=== PATIENT | male | born 1980 | race African-American/Black ===

== ENCOUNTER 2023-12-01 10:00 | Outpatient (AMB) | payer OTHER, SELFPAY ==
--- NOTE | 2023-12-01 10:10 | MHC.PC.OV ---
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 Intake Note: pt is here for est care and requesting a PE Rack Washer Required: No Accompanied by: Self / Same As Patient Allergies No Known Allergies Allergy (Verified 12/01/23 10:20) Medication List - Last Reconciled 12/01/23 by RAEANN Ruggiero ibuprofen 400 mg PO Q8H PRN Tobacco use date assessed: 12/01/23 Dental Screening Dental Screen Date: 12/01/23 Did you have a dental visit in the last 12 months?: Yes Did you have a dental problem in the last 6 months where you did not have access to dental care?: No Was dental information given to patient?: Patient has dentist HPI HPI Comments History of Present Illness Details Patient is a 43-year-old male who I am meeting for the 1st time. Patient is here for physical exam. Patient is up-to-date with his immunizations Will draw labs today including CBC, CMP, TSH, vitamin-D, vitamin B6, vitamin B12, PSA, lipid panel. Patient has a past medical history significant for intermittent lower back pain and snoring. Patient given Healthcare proxy form, will return to office. [facility] Surgical History History of root canal procedure Family History Mother No known problems Father High blood pressure Diabetes Social History Housing: House Alcohol intake: current Alcohol intake frequency: holidays/special occasions only Alcohol type: beer Patient Tobacco Use Status: Never used Tobacco e-Cigarette/Vaping Use: Never Used service: Yes (active duty, [employer] ) Current occupational status: employed Current occupational exposures/hazards: No Cognitive needs: No Hearing needs: No Vision needs: No Questionnaire PHQ-9 Over the last 2 weeks, how often have you been bothered by any of the following problems? 1. Little interest or pleasure in doing things: not at all 2. Feeling down, depressed, or hopeless: not at all 3. Trouble falling or staying asleep, or sleeping too much: not at all 4. Feeling tired or having little energy: not at all 5. Poor appetite or overeating: not at all 6. Feeling bad about yourself - or that you are a failure or have let yourself or your family down: not at all 7. Trouble concentrating on things, such as reading the newspaper or watching television: not at all 8. Moving or speaking so slowly that other people could have noticed. Or the opposite - being so fidgety or restless that you have been moving around a lot more than usual: not at all 9. Thoughts that you would be better off or of hurting yourself in some way: not at all Total score: 0 Depression Screening Interpretation: Negative Depression Screening Done: Yes 69580 - PHQ-9 Billing: Yes Source: Developed by Drs. Marvin Clark, Alta Ruth, Matt Agustin and colleagues, with an educational yenni from [employer]. Thrive Questionnaire Date Thrive assessed: 12/01/23 I am a: Patient What is your living situation today?: I have a steady place to live Within the past 12 months, did the food you bought not last and you didn't have the money to get more?: Never true Within the past 12 months, did you worry whether your food would run out before you got money to buy more?: Never true Do you have trouble paying for medicines?: No Do you have trouble getting transportation to medical appointments?: No Do you have trouble paying your heating and electricity bill?: No Do you have trouble taking care of your child, family member or friend?: No Do you have trouble with day-to-day activities such as bathing, preparing meals, shopping, managing finances, etc.?: No Are you currently unemployed and looking for a job?: No Are you interested in more education?: No Please select the resources that you would like help with: None Currently or been in a relationship where the following occur: no concerns reported THRIVE Score: 0 AUDIT C Alcohol Use Questionnaire (AUDIT-C) 1. How often do you have a drink containing alcohol?: Monthly or less 3. How often do you have six or more drinks on one occasion?: Never Total Score: 1 Score Reviewed/Action Taken: Yes THAO-7 AMB Questionnaire THAO-7 Date THAO - 7 assessed: 12/01/23 Feeling nervous, anxious, or on edge: 0 = Not at all Not being able to stop or control worryin = Not at all Worrying too much about different things: 0 = Not at all Trouble relaxin = Not at all Being so restless that it is hard to sit still: 0 = Not at all Becoming easily annoyed or irritable: 0 = Not at all Feeling afraid as if something awful might happen: 0 = Not at all Total THAO-7 score (0-4 normal; 5-9 mild; 10-14 moderate; 15-21 severe): 0 Source: Developed by Drs. Marvin Clark, Alta Ruth, Matt Agustin and colleagues, with an educational yenni from [employer] [facility]. THAO-7 Assessment Billing THAO-7 Assessment Tool: THAO-7 Assessment 58064 Review of Systems Const All systems reviewed & are unremarkable except as noted in HPI and below Card Denies chest pain and Denies dyspnea Resp Denies dyspnea GI Denies diarrhea, Denies nausea and Denies vomiting Musc Reports back pain (lower), Reports radiating pain into limb (right limb) and Denies tingling Neuro Denies tingling and Denies paresthesias Psych Denies homicidal ideation and Denies suicidal ideation Physical exam (Primary Care) Vital Signs: Last Vital Signs Pulse 67 12/01/23 10:12 BP 120/70 12/01/23 10:12 Pulse Ox 97 12/01/23 10:12 Oxygen Delivery Method Room Air 12/01/23 10:12 Care Plan Goal for BP management: Patient's blood pressure is in control. BMI result Body Mass Index 28.9 Tobacco/Smoking Status: Tobacco use Status Tobacco use date assessed 12/01/23 12/01/23 10:17 Patient Tobacco Use Status Never used Tobacco 12/01/23 10:17 e-Cigarette/Vaping Use Never Used 12/01/23 10:17 Depression Screening Interpretation: Negative Currently or been in a relationship where the following occur: no concerns reported Advance Care Planning discussion: Exists, not on file Date of discussion: 12/01/23 Forms completed: Health Care Proxy Time spent: 1-15 minutes, not on file Const Other: Appearance: Alert.? Oriented X3.? No acute distress.? Head: Normocephalic, atraumatic, Eyes: Pupils equal, round and reactive to light.? ENT: Pharynx normal.?TM intact and pearly bowen. Neck: Normal inspection.? Neck supple.?Full ROM. CVS: Normal heart rate and rhythm.? Pulses normal.? Respiratory: No respiratory distress.? Breath sounds normal.? Abdomen: Soft and nontender.? Skin: Skin warm and dry.? Normal skin color.? Normal skin turgor.? Extremities: No lower extremity edema.? No calf ttp. 5/5 strength to bilateral upper and lower extremities Back: No midline tenderness, no C-spine tenderness, full range of motion, no CVA tenderness bilaterally. +straight leg test right leg. Neuro: Oriented X 3.? No motor deficit.? No sensory deficit. CN 2-12 intact Assessment and Plan Assessment & Plan (1) Encounter for physical examination: Comment: Will draw labs, including PSA. Will refer to GI for colonoscopy. Code(s): Z00.00 - Encounter for general adult medical examination without abnormal findings (2) Lower back pain: Comment: Will order lumbar x-ray. Will refer to physical therapy. Code(s): M54.50 - Low back pain, unspecified Qualifiers: Back pain laterality: right Chronicity: unspecified Sciatica laterality: sciatica of right side Sciatica presence: with sciatica Qualified Code(s): M54.41 - Lumbago with sciatica, right side (3) Snoring: Comment: Will refer to Sleep Medicine Code(s): R06.83 - Snoring Plan: Take your medications as prescribed. If you were prescribed antibiotics today, it is important that you take your medication to their entirety, do not skip any doses, do not finish them early. Return to the emergency department with new or worsening symptoms. Such as fevers, chills, chest pain, shortness of breath, nausea, vomiting, dizziness, headache, vision changes, lethargy In case of emergency call 911 Plan Patient will follow-up in 3 months Orders: Orders Comprehensive Met. Panel Today Z91.89 - Other specified personal risk factors, not elsewhere classified Vitamin B12 Today Z13.21 - Encounter for screening for nutritional disorder PSA,Total (Free>4and<10) Today Z12.5 - Encounter for screening for malignant neoplasm of prostate UA CC w/rflx Micro + Cult Today Z13.89 - Encounter for screening for other disorder TSH reflex Free T4 Today Z13.29 - Encounter for screening for other suspected endocrine disorder Complete Blood Count Auto Diff Today Z13.0 - Encounter for screening for diseases of the blood and blood-forming organs and certain disorders involving the immune mechanism Vitamin D 25-OH (D2 and D3) Today Z13.21 - Encounter for screening for nutritional disorder Vitamin B6 Today Z13.21 - Encounter for screening for nutritional disorder Lipid Panel Today Z13.220 - Encounter for screening for lipoid disorders XR sacroiliac joint min 3V Today G89.29 - Other chronic pain, M53.3 - Sacrococcygeal disorders, not elsewhere classified Referrals Sleep Medicine Referral R06.83 - Snoring Gastroenterology Referral Z12.11 - Encounter for screening for malignant neoplasm of colon Coding Level of Care Code New Pt Prev Care 40-64y(69178) Diagnoses Encounter for physical examination Z00.00 Right-sided low back pain with right-sided sciatica, unspecified chronicity M54.41 Back pain laterality: right Chronicity: unspecified Sciatica laterality: sciatica of right side Sciatica presence: with sciatica Snoring R06.83 Additional Codes THAO-7 Assessment Billing - THAO-7 Assessment Tool: THAO-7 Assessment 53460 ([id number]) Vital Signs *Quality* - Advance Care Planning discussion: Exists, not on file ([id number]) Vital Signs *Quality* - Time spent: 1-15 minutes, not on file ([id number]) Time Spent (min) 35
[2023-12-01 10:12] VITALS: BP 120/70; PULSE 67; O2SAT 97; BMI 28.9
== END 2023-12-01 12:00 | disposition home or self-care (01) ==
PROVIDERS: Visit Provider Nurse Practitioner Primary Care
DX: Z00.00 Encounter for general adult medical examination without abnormal findings (principal); M54.41 Lumbago with sciatica, right side; R06.83 Snoring
CPT/HCPCS: 1123F; 1124F; 99386

== ENCOUNTER 2023-12-01 10:59 | Outpatient (REF) | payer OTHER, SELFPAY ==
--- NOTE | ~2023-12-01 | XR_ITS ---
EXAMINATION: XR SACROILIAC JOINTS CLINICAL INFORMATION: Sacroiliac joint disorders. M 53.3 COMPARISON: None available. TECHNIQUE: 3 views of the sacroiliac joints FINDINGS: Bones and soft tissues are normal. No fracture. Alignment is anatomic. Sacroiliac joint spaces are well-maintained without erosions or surrounding sclerosis. Incidental note made of a transitional lumbar sacral junction. XR/XR sacroiliac joint min 3V IMPRESSION: Normal sacroiliac joints.
[2023-12-01 13:26] LABS: MANUAL DIFF FLAG NO
[2023-12-01 13:43] LABS: Appearance Urine Clear; Color Urine Yellow; Glucose Urine UA Negative (Negative); Leukocyte Esterase Urine Negative (Negative); Nitrite Urine Negative (Negative); Specific Gravity - Urine 1.025 (1.005-1.025); Urine Blood Negative (Negative); Urine Ketones Negative (Negative); Urine Protein Negative (Neg-Trace)
[2023-12-01 13:46] LABS: Basophils Absolute Auto 0.1 X10*3/uL (0.0-0.2); Eosinophils Absolute Auto 0.2 X10*3/uL (0.0-0.4); Eosinophils Percent Auto 3.4 % (0-4); Hematocrit 42.6 % (42.0-52.0); Hemoglobin 14.7 g/dl (14.0-18.0); Imm Gran Abs Auto 0.01 X10*3/uL (0.00-0.03); Imm Gran Pct Auto 0.2 % (0.0-0.4); Lymphocytes Absolute Auto 1.9 X10*3/uL (1.2-4.9); Lymphocytes Percent Auto 32.2 % (20-40); Mean Corpuscular HGB Conc 34.5 g/dl (31.0-36.0); Mean Corpuscular Hemoglobin 31.1 pg (27.0-33.0); Mean Corpuscular Volume 90.3 fL (80.0-98.0); Mean Platelet Volume 13.8 fL (9.4-12.4); Monocytes Absolute Auto 0.6 X10*3/uL (0.1-1.2); Monocytes Percent Auto 10.4 % (2-11); Neutrophils Absolute Auto 3.2 x10*3/uL (2.0-8.3); Neutrophils Percent Auto 52.8 % (45-73); Platelet Count 153 X10*3/uL (160-400); Red Blood Count 4.72 X10*6/uL (4.60-5.80); Red Cell Distribution Width 12.2 % (11.0-16.0)
[2023-12-01 14:18] LABS: PSA,Total (Free>4and<10) 0.31 ng/mL (0.00-4.00)
[2023-12-01 14:25] LABS: Alanine Aminotransferase 23 U/L (0-40); Albumin Level 4.4 g/dL (3.5-5.0); Alkaline Phosphatase 94 U/L (39-117); Anion Gap 12 (12-20); Aspartate Amino Transferase 19 U/L (5-37); Bilirubin Total 0.3 mg/dL (0.0-1.0); Blood Urea Nitrogen 22 mg/dL (9-16); Calcium 9.6 mg/dL (8.4-10.2); Carbon Dioxide 24 mmol/L (22-29); Chloride 107 mmol/L (96-108); Cholesterol 192 mg/dL (<200); Estimated Glomerular Filt Rate > 60; Glucose Random 79 mg/dL (60-115); HDL Cholesterol 44 mg/dL (>40); LDL Cholesterol Calculated 129 mg/dL (<100); Potassium 4.4 mmol/L (3.3-5.1); Sodium 139 mmol/L (135-145); TSH reflex Free T4 0.15 uIU/mL (0.32-4.0); Total Protein 7.6 g/dL (6.5-8.0); Triglycerides 96 mg/dL (<150)
[2023-12-01 14:26] LABS: Vitamin B12 302 pg/mL (200-900)
[2023-12-01 14:58] LABS: Free T4 (Free Thyroxine) 0.83 ng/dL (0.71-1.85)
[2023-12-06 17:03] LABS: Vitamin B6 16.1 ng/mL (2.1-21.7)
[2023-12-07 15:53] LABS: Vitamin D 25-OH, D2 <4 ng/mL; Vitamin D 25-OH, D3 <4 ng/mL; Vitamin D 25-OH, Total <4 ng/mL (30-100)
== END 2023-12-01 11:00 | disposition home or self-care (01) ==
LOC: HO.HMGCX 10:59
PROVIDERS: Visit Provider Nurse Practitioner Primary Care
DX: M53.3 Sacrococcygeal disorders, not elsewhere classified (principal); G89.29 Other chronic pain; Z13.21 Encounter for screening for nutritional disorder; Z13.29 Encounter for screening for other suspected endocrine disorder; Z13.0 Encounter for screening for diseases of the blood and blood-forming organs and certain disorders involving the immune mechanism; Z91.89 Other specified personal risk factors, not elsewhere classified; Z12.5 Encounter for screening for malignant neoplasm of prostate; Z13.89 Encounter for screening for other disorder; Z13.220 Encounter for screening for lipoid disorders
CPT/HCPCS: 36415; 72202; 80053; 80061; 81003; 82306; 82607; 84153; 84207; 84439; 84443; 85025

== ENCOUNTER 2023-12-12 15:09 | Outpatient (AMB) | payer OTHER, SELFPAY ==
--- NOTE | 2023-12-12 15:14 | MHC.OFFVIS ---
Vital Signs 12/12/23 15:28 Height 5 ft 9 in Weight 197 lb 8 oz BMI 29.2 BP 120/82 Blood Pressure Location Lt brachial Position Sitting Pulse 67 Pulse Source Pulse Oximeter Pulse Oximetry (%) 98 Oxygen Delivery Method Room Air Intake Visit Reasons: INP-Snoring Intake Note: Patient presents for snoring. Sometimes having difficulty falling asleep and staying asleep. Constant loud snoring almost every night. 2-3 days a week waking up gasping for air and feeling like choking. 1-2 headaches a week in morning when waking up. Feeling tired during the day and feeling fatigue. Allergies No Known Allergies Allergy (Verified 12/12/23 15:26) Medication List - Last Reconciled 12/12/23 by Reyna Chavez, RAEANN ibuprofen 400 mg PO Q8H PRN HPI Comments Details: 43-yr-old male presents for new in-person patient visit for sleep consultation. Pt reports he is having ongoing sleep difficulties- loud snoring and apneas, which are affecting his day to day quality of life. He oftem sleeps on the 1st floor so his family is not disturbed by his snoring. The snoring prevents him from easily visiting w/ family- cannot sleep at family member/friend's homes d/t loud snoring. He has tried increasing exercise, increasing fluid, eating better, and sleeping on the floor- to help w/ his back pain, which has not helped his sleep. Sleep questionnaire: Have you ever been diagnosed with a sleep disorder? No Have you ever had a sleep study in the past? No Have you ever been treated for a sleep disorder? No Do you take medications for a sleep disorder? No Do you snore? Yes Do you wake up gasping at night? Yes Do you have episodes of apneas? Yes If yes, are they witnessed? Yes Do you have episodes of nocturnal chest pain or dyspnea? Sometimes SOB Do you have difficulty initiating sleep? At times Do you have difficulty maintaining sleep? Fragmented sleep- some difficulties falling back asleep- may use his phone or watch Tv until he can sleep again. Do you wake up tired? Yes Do you have headaches upon awakening? 1-2 x's times a week- usually subsided w/ water and coffee intake Do you wake up with dry mouth or throat? Sometimes Do you have GERD? No Do you have daytime tiredness or fatigue? Yes Do you have nocturnal leg cramps? At times Do you have symptoms of restless legs? Prone to tapping, legs may be itchy Do you act out your dreams? Does talk in his sleep. Moves his legs a lot in his sleep. Sleep hygiene questionnaire: What is your usual sleep routine? Usual bedtime is at 9-10pm; Usual wake-up time is at 2am then sleeps on and off through 6:30am. Do you take naps? No Is your sleep environment cool, dark, and quiet? Usually sleeping on the 1st floor living room- not in his bedroom. Do you exercise? Strength training and cardio- liek cross fit Do you take caffeine or other stimulants? 8-16 oz coffee, may take an afternoon coffee if tired Do you use electronics in bed? May use his phone at times at night. What is your work schedule? Works 7:30am-4:30pm+. 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 Hypersomnolence questionnaire: Do you easily fall asleep when inactive? Yes. At work- will need to get up, walk, and talk w/ others so he does not fall asleep. Have you ever had episodes of sudden weakness? AUDRA used to be weaker- but better since eating dates and doing arm exercises. Have you ever had episodes of sudden weakness associated with strong emotions? No PFSH Surgical History History of root canal procedure Family History Mother No known problems Father High blood pressure Diabetes Social History Housing: House Alcohol intake: current Alcohol intake frequency: holidays/special occasions only Alcohol type: beer Patient Tobacco Use Status: Never used Tobacco e-Cigarette/Vaping Use: Never Used service: Yes (active duty, [employer] ) Current occupational status: employed Current occupational exposures/hazards: No Cognitive needs: No Hearing needs: No Vision needs: No Review of Systems Const All systems reviewed & are unremarkable except as noted in HPI and below Physical Exam Vital Signs: Last Vital Signs Pulse 67 12/12/23 15:28 BP 120/82 12/12/23 15:28 Pulse Ox 98 12/12/23 15:28 Oxygen Delivery Method Room Air 12/12/23 15:28 BMI result Body Mass Index 29.2 Const General: no acute distress Orientation/consciousness: patient oriented x3 HEENT Other: Mallampati stage IV Resp Effort & Inspection: able to speak in complete sentences Neuro General: patient oriented x3 and deep tendon reflexes 2+ bilaterally Motor exam (neuro): 5/5 motor strength present throughout Psych Mental Status: mental status grossly normal Speech and movement: Clear speech present Attitude: cooperative Telehealth Telehealth Location of provider rendering services: practice address Location of patient: address on file Patient Identification confirmed using: Name, : Yes Telehealth method: voice only Patient verbally consented to treatment: Yes Patient verbally consented to billing insurance company: Yes Patient informed of any privacy concerns related to visit: Yes Assessment & Plan Assessment & Plan (1) Snoring: Code(s): R06.83 - Snoring Category: Medical (2) Sleep difficulties: Code(s): G47.9 - Sleep disorder, unspecified Category: Medical (3) Excessive daytime sleepiness: Code(s): G47.19 - Other hypersomnia Category: Medical Plan Pt advised to undergo HST to assess for sleep apnea.. In the meantime, pt may try OTC breathe-right strips, muse device, side sleeping to help w/ snoring. Would avoid sleeping prone d/t low back pain. Discussed strategies to optimize sleep hygiene- avoid caffeine intake after 2-3pm, avoid electronics during sleep hours. Follow-up upon review of above and in clinic in 6 months or sooner prn. Orders: Orders RT home sleep study Today G47.19 - Other hypersomnia, G47.9 - Sleep disorder, unspecified, R06.83 - Snoring Coding Level of Care Code New Pt Level 4 (02612) Diagnoses Snoring R06.83 Sleep difficulties G47.9 Excessive daytime sleepiness G47.19 [place] Sleepiness Scale Questions Sitting and reading: high chance of dozing Watching TV: high chance of dozing Sitting inactive in a theater, movie etc.: high chance of dozing As a passenger in a car for an hour without break: would never doze Lying down in the afternoon when circumstances permit: high chance of dozing Sitting and talking to someone: would never doze Sitting quietly after lunch without alcohol: high chance of dozing In a car, while stopped for a few minutes in the traffic: would never doze ESS < 10: normal, ESS > 12: pathologic: 15
[2023-12-12 15:28] VITALS: BP 120/82; PULSE 67; O2SAT 98; BMI 29.2
== END 2023-12-12 16:23 | disposition home or self-care (01) ==
PROVIDERS: Visit Provider Nurse Practitioner Family
DX: R06.83 Snoring (principal); G47.9 Sleep disorder, unspecified; G47.19 Other hypersomnia
CPT/HCPCS: 99204

== ENCOUNTER → 2023-12-12 15:09 | Outpatient (BNVA) | payer OTHER, SELFPAY | PROVIDERS: Visit Provider Nurse Practitioner Family | DX: R06.83 Snoring (principal); G47.9 Sleep disorder, unspecified; G47.19 Other hypersomnia | CPT/HCPCS: 99202 ==

== ENCOUNTER 2023-12-29 08:52 | Outpatient (AMB) | payer OTHER, SELFPAY ==
[2023-12-29 09:42] VITALS: BP 110/68; PULSE 75; O2SAT 98; BMI 28.8
--- NOTE | 2023-12-29 09:42 | A.OFFPC_ITS ---
Vital Signs 12/29/23 09:42 Height 5 ft 9 in Weight 195 lb BMI 28.8 BP 110/68 Blood Pressure Location Lt brachial Position Sitting Pulse 75 Pulse Source Pulse Oximeter Pulse Oximetry (%) 98 Oxygen Delivery Method Room Air Intake Visit Reasons: F/U X-Ray/labs Intake Note: Pt here for f/u for xray/lab results Allergies No Known Allergies Allergy (Verified 12/29/23 09:43) Tobacco use date assessed: 12/29/23 Dental Screening Dental Screen Date: 12/29/23 HPI HPI Comments History of Present Illness Details Patient is a 43-year-old male in today for a follow-up for labs and imaging. Patient is vitamin-D deficient, will start 2000 units per day and redrawn 3 months. Patient also has elevated LDL cholesterol, will not start medication at this time patient would like to improve with diet and exercise and will redraw in 3 months. Patient still having lower back discomfort, will order lumbar x-ray. Patient is denying tingling or numbness. It denying saddle numbness. Patient denies trauma to the area. Will refer to physical therapy. [facility] Surgical History History of root canal procedure Family History Mother No known problems Father High blood pressure Diabetes Social History Housing: House Alcohol intake: current Alcohol intake frequency: holidays/special occasions only Alcohol type: beer Patient Tobacco Use Status: Never used Tobacco e-Cigarette/Vaping Use: Never Used service: Yes (active duty, [employer] ) Current occupational status: employed Current occupational exposures/hazards: No Cognitive needs: No Hearing needs: No Vision needs: No Questionnaire Thrive Questionnaire Date Thrive assessed: 12/01/23 THAO-7 AMB Questionnaire THAO-7 Date THAO - 7 assessed: 12/01/23 Source: Developed by Drs. Marvin Clark, Alta Ruth, Matt Agustin and colleagues, with an educational yenni from [employer] Review of Systems Const All systems reviewed & are unremarkable except as noted in HPI and below Musc Reports back pain (lower back), Denies numbness and Denies radiating pain into limb Neuro Denies numbness Physical exam (Primary Care) Tobacco/Smoking Status: Tobacco use Status Tobacco use date assessed 12/29/23 12/29/23 09:44 Patient Tobacco Use Status Never used Tobacco 12/29/23 09:44 e-Cigarette/Vaping Use Never Used 12/29/23 09:44 Thrive Assessment: Date of Thrive Assessment Date Thrive assessed 12/01/23 12/29/23 09:44 Const Other: Appearance: Alert.? Oriented X3.? No acute distress.? Head: Normocephalic, Eyes: Sclera white. Neck: Normal inspection.? Neck supple.? CVS: Normal heart rate and rhythm.? Pulses normal.? Respiratory: No respiratory distress.? Breath sounds normal.? Back: No CVA tenderness. No C spine tenderness. Full ROM. Neuro: Oriented X 3.? No motor deficit.? No sensory deficit. Assessment and Plan Assessment & Plan (1) Lower back pain: Comment: Will order lumbar x-ray. Will refer to physical therapy. Code(s): M54.50 - Low back pain, unspecified Qualifiers: Chronicity: unspecified Back pain laterality: right Sciatica presence: with sciatica Sciatica laterality: sciatica of right side Qualified Code(s): M54.41 - Lumbago with sciatica, right side (2) Vitamin D deficiency: Comment: Patient will start 2000 units vitamin D3 per day. Code(s): E55.9 - Vitamin D deficiency, unspecified Plan Patient will follow-up in 1 month. Orders: Orders XR lumbar spine 2-3V Today M54.41 - Lumbago with sciatica, right side PT Evaluation and Treatment Today M54.41 - Lumbago with sciatica, right side Vitamin D 25-OH (D2 and D3) Today E55.9 - Vitamin D deficiency, unspecified Coding Level of Care Code Est Pt Level 3 (33672) Diagnoses Right-sided low back pain with right-sided sciatica, unspecified chronicity M54 .41 Chronicity: unspecified Back pain laterality: right Sciatica presence: with sciatica Sciatica laterality: sciatica of right side Vitamin D deficiency E55.9 Time Spent (min) 21
== END 2023-12-29 10:12 | disposition home or self-care (01) ==
PROVIDERS: Visit Provider Nurse Practitioner Primary Care
DX: M54.41 Lumbago with sciatica, right side (principal); E55.9 Vitamin D deficiency, unspecified
CPT/HCPCS: 99213

== ENCOUNTER 2023-12-29 10:00 | Outpatient (REF) | payer OTHER, SELFPAY ==
--- NOTE | ~2023-12-29 | XR_ITS ---
EXAMINATION: XR LUMBOSACRAL SPINE CLINICAL INFORMATION: Lumbago with sciatica, right side COMPARISON: None available. TECHNIQUE: Three views of the lumbosacral spine. FINDINGS: Small riblets extend off T12. There is a transitional lumbosacral vertebral body which for the purposes study will be called L5. The height of the lumbar vertebral bodies is well-maintained. There is straightening of the usual lumbar lordosis which can be seen with muscle spasm. There is marked disc space narrowing and marginal osteophyte formation at L4-L5 with associated degenerative facet joint disease. There is mild retrolisthesis of L3 with respect to L4. There is question of L5 spondylolysis. XR/XR lumbar spine 2-3V IMPRESSION: 1. Muscle spasm. 2. Marked degenerative disc disease at L4-L5. 3. Question of L5 spondylolysis. CT scan or MRI scan could be obtained for further evaluation. 4. Mild retrolisthesis of L3 with respect to L4.
== END 2023-12-29 10:01 | disposition home or self-care (01) ==
LOC: HO.HMGCX 10:00
PROVIDERS: PCP Nurse Practitioner Primary Care; Visit Provider Nurse Practitioner Primary Care
DX: M54.41 Lumbago with sciatica, right side (principal)
CPT/HCPCS: 72100

== ENCOUNTER 2024-02-06 13:06 | Outpatient (AMB) | payer OTHER, SELFPAY ==
--- NOTE | 2024-02-06 13:26 | MHC.PC.OV ---
Vital Signs 02/06/24 13:27 Height 5 ft 9 in Weight 195 lb BMI 28.8 BP 106/78 Blood Pressure Location Lt brachial Position Sitting Pulse 74 Pulse Source Pulse Oximeter Pulse Oximetry (%) 98 Oxygen Delivery Method Room Air Intake Visit Reasons: F/U labs Intake Note: pt is here for f/u on recent lab results. Allergies No Known Allergies Allergy (Verified 02/06/24 13:26) Tobacco use date assessed: 02/06/24 Dental Screening Dental Screen Date: 12/29/23 HPI HPI Comments History of Present Illness Details Patient is a 43-year-old male in today for a follow-up with his labs and lumbar back pain. Patient was found to be deficient in vitamin-D, has started vitamin D3 2000 units per day, will redrawn 3 months. Patient was also found to have elevated LDL cholesterol, will try to lower this with improved diet and exercise. Patient is active duty , has had ongoing issues with lumbar back pain. Do have diagnostic x-ray on file. MRI was suggested for further evaluation of L5 spondylosis. Patient utilizes ibuprofen with mild effect. COUNT INCLUDES THE [facility] Surgical History History of root canal procedure Family History Mother No known problems Father High blood pressure Diabetes Social History Housing: House Alcohol intake: current Alcohol intake frequency: holidays/special occasions only Alcohol type: beer Patient Tobacco Use Status: Never used Tobacco e-Cigarette/Vaping Use: Never Used service: Yes (active duty, [employer] ) Current occupational status: employed Current occupational exposures/hazards: No Cognitive needs: No Hearing needs: No Vision needs: No Questionnaire Thrive Questionnaire Date Thrive assessed: 12/01/23 THAO-7 AMB Questionnaire THAO-7 Date THAO - 7 assessed: 12/01/23 Source: Developed by Drs. Marvin Clark, Alta Ruth, Matt Agustin and colleagues, with an educational yenni from [employer] Review of Systems Const All systems reviewed & are unremarkable except as noted in HPI and below Physical exam (Primary Care) Vital Signs: Last Vital Signs Pulse 74 02/06/24 13:27 BP 106/78 02/06/24 13:27 Pulse Ox 98 02/06/24 13:27 Oxygen Delivery Method Room Air 02/06/24 13:27 BMI result Body Mass Index 28.8 Tobacco/Smoking Status: Tobacco use Status Tobacco use date assessed 02/06/24 02/06/24 13:33 Patient Tobacco Use Status Never used Tobacco 02/06/24 13:33 e-Cigarette/Vaping Use Never Used 02/06/24 13:33 Thrive Assessment: Date of Thrive Assessment Date Thrive assessed 12/01/23 02/06/24 13:33 Const Other: Appearance: Alert.? Oriented X3.? No acute distress.? Head: Normocephalic, atraumatic, no step-offs or deformities Eyes: Pupils equal, round and reactive to light.? CVS: Normal heart rate and rhythm.? Pulses normal.? Respiratory: No respiratory distress.? Breath sounds normal.? Skin: Skin warm and dry.? Normal skin color.? Normal skin turgor.? Extremities: No lower extremity edema.? No calf ttp. 5/5 strength to bilateral upper and lower extremities Back: No midline tenderness, no C-spine tenderness, Limted range of motion to flexion/extension and roation, +Straight leg test. no CVA tenderness bilaterally Neuro: Oriented X 3.? No motor deficit.? No sensory deficit. CN 2-12 intact Assessment and Plan Assessment & Plan (1) Vitamin D deficiency: Comment: Patient currently taking 2000 units vitamin D3 per day. Patient will have this redrawn in 3 months. Code(s): E55.9 - Vitamin D deficiency, unspecified (2) Lower back pain: Comment: Patient has MRI order an after receiving x-ray results. Patient also has physical therapy referral in. Code(s): M54.50 - Low back pain, unspecified Qualifiers: Chronicity: unspecified Back pain laterality: right Sciatica presence: with sciatica Sciatica laterality: sciatica of right side Qualified Code(s): M54.41 - Lumbago with sciatica, right side Coding Level of Care Code Est Pt Level 3 (16121) Diagnoses Vitamin D deficiency E55.9 Right-sided low back pain with right-sided sciatica, unspecified chronicity M54.41 Chronicity: unspecified Back pain laterality: right Sciatica presence: with sciatica Sciatica laterality: sciatica of right side Time Spent (min) 26
[2024-02-06 13:27] VITALS: BP 106/78; PULSE 74; O2SAT 98; BMI 28.8
== END 2024-02-06 14:04 | disposition home or self-care (01) ==
PROVIDERS: PCP Nurse Practitioner Primary Care; Visit Provider Nurse Practitioner Primary Care
DX: E55.9 Vitamin D deficiency, unspecified (principal); M54.41 Lumbago with sciatica, right side
CPT/HCPCS: 99213

== ENCOUNTER 2024-03-23 07:16 | Outpatient (REF) | payer OTHER, SELFPAY ==
--- NOTE | ~2024-03-23 | MR_ITS ---
MRI OF THE LUMBAR SPINE WITHOUT CONTRAST CLINICAL INFORMATION: Lumbago with right-sided sciatica. COMPARISON: Lumbar spine radiographs December 29, 2023. TECHNIQUE: Multiplanar multisequence MR imaging of the lumbar spine obtained without contrast. 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 Please correlate with plain films prior to any percutaneous or surgical intervention. Using this counting system, there are Modic type I endplate signal changes at L4-L5. There is no additional bone marrow edema. There are no acute fractures. Multilevel endplate osteophytes. Conus terminates at the L1 level. L1-L2: Posterior disc contour is normal. No central canal stenosis and no foraminal stenosis. L2-L3: Diffuse annular disc bulge. There is no central canal stenosis and there is no foraminal stenosis. L3-L4: Diffuse annular disc bulge exhibiting and dorsal annular fissure and bilateral facet arthropathy and ligamentum flavum thickening. Findings in concert result in severe left subarticular zone stenosis with compression of the traversing left L4 nerve root, mild central canal stenosis, and mild bilateral foraminal encroachment. L4-L5: Diffuse annular disc bulge and moderate bilateral facet arthropathy and ligamentum flavum thickening. Findings in concert result in mild central canal stenosis, narrowing of the subarticular zones with mild mass effect on the traversing L5 nerve roots bilaterally, and mild bilateral foraminal encroachment. L5-S1: A transitional disc contour is normal. There is no central canal stenosis and there is no foraminal stenosis. 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 Please correlate with plain films prior to any percutaneous or surgical intervention. * At L3-L4, multifactorial degenerative changes result in severe left subarticular zone stenosis with compression of the traversing left L4 nerve root, mild central canal stenosis, and mild bilateral foraminal encroachment. * At L4-L5, multifactorial degenerative changes result in mild central canal stenosis, narrowing of the subarticular zones with mild mass effect on the traversing L5 nerve roots bilaterally, and mild bilateral foraminal encroachment. There are Modic type I endplate signal changes at this level. Electronically signed by: Chris Peck MD 04/11/2024 11:30 AM EDT
== END 2024-03-23 07:17 | disposition home or self-care (01) ==
LOC: HO.MRI 07:16
PROVIDERS: Visit Provider Nurse Practitioner Primary Care
DX: M54.41 Lumbago with sciatica, right side (principal)
CPT/HCPCS: 72148

== ENCOUNTER 2024-03-31 08:08 | Outpatient (AMB) | payer OTHER, SELFPAY ==
--- NOTE | 2024-03-31 08:09 | MHC.OFFWIV ---
Intake Vital Signs 03/31/24 08:10 Height 5 ft 9 in Weight 199 lb BMI 29.4 BP 110/80 Blood Pressure Location Lt brachial Position Sitting Pulse 65 Pulse Source Pulse Oximeter Temp 98.5 F Temp Source Oral Pulse Oximetry (%) 98 Oxygen Delivery Method Room Air Intake Visit Reasons: EP cut on finger Intake Note: pt c/o cut on LT index finger. Happened this morning. Cut with knife. Up to date on TD Patient Tobacco Use Status: Never used Tobacco Allergies No Known Allergies Allergy (Verified 03/31/24 08:36) Do you need a note to return to daycare/school/sports/work: Yes HPI HPI Comments History of Present Illness Details Patient is a 43-year-old male complaining of a cut on his left 2nd digit that happened this morning while he was cutting some bread with a knife. He states he is up-to-date on his tetanus as he is in the and they get them regularly. He states he had a cut on his thumb last year and he had a tetanus when he had that sensation. [facility] Surgical History History of root canal procedure Family History Mother No known problems Father High blood pressure Diabetes Social History Housing: House Alcohol intake: current Alcohol intake frequency: holidays/special occasions only Alcohol type: beer Patient Tobacco Use Status: Never used Tobacco e-Cigarette/Vaping Use: Never Used service: Yes (active duty, [employer] ) Current occupational status: employed Current occupational exposures/hazards: No Cognitive needs: No Hearing needs: No Vision needs: No Review of Systems Const All systems reviewed & are unremarkable except as noted in HPI and below Physical Exam Vital Signs: Last Vital Signs Temp 98.5 F 03/31/24 08:10 Pulse 65 03/31/24 08:10 BP 110/80 03/31/24 08:10 Pulse Ox 98 03/31/24 08:10 Oxygen Delivery Method Room Air 03/31/24 08:10 BMI result Body Mass Index 29.4 Const General: cooperative, healthy appearing, comfortable, no acute distress and well developed Orientation/consciousness: patient oriented x3 Limitations: no limitations HEENT Head: Yes normal to inspection Neck Neck: Yes normal visual inspection and Yes supple Neuro General: patient oriented x3 Extrem Other: Left 2nd digit has 0.75 cm superficial laceration, bleeding is controlled, no signs of infection noted. No flap to suture down, will Steri-Strip Assessment & Plan Assessment & Plan (1) Laceration of finger of left hand: Code(s): S61.219A - Laceration without foreign body of unspecified finger without damage to nail, initial encounter Qualifiers: Encounter type: initial encounter Finger: index finger Damage to nail status: without damage Foreign body presence: without foreign body Qualified Code(s): S61.211A - Laceration without foreign body of left index finger without damage to nail, initial encounter Plan: Cleaned with Betadine, applied Steri-Strips and covered with a gauze. Recommended to keep it covered for the next 2 days and then it should be healing fine Plan see above Coding Level of Care Code Est Pt Level 3 (91841) Diagnoses Laceration of left index finger without foreign body without damage to nail, initial encounter S61.211A Encounter type: initial encounter Finger: index finger Damage to nail status: without damage Foreign body presence: without foreign body
[2024-03-31 08:10] VITALS: BP 110/80; PULSE 65; TEMP 36.9; O2SAT 98; BMI 29.4
== END 2024-03-31 09:18 | disposition home or self-care (01) ==
PROVIDERS: PCP Nurse Practitioner Primary Care; Visit Provider Physician Assistant
DX: S61.211A Laceration without foreign body of left index finger without damage to nail, initial encounter (principal)
CPT/HCPCS: 99213

== ENCOUNTER 2024-05-13 10:05 | Outpatient (REF) | payer OTHER, SELFPAY ==
[2024-05-13 14:21] LABS: Vitamin D 25-OH Total 24.8 ng/mL (>30)
== END 2024-05-13 10:06 | disposition home or self-care (01) ==
LOC: HO.HMGCLDS 10:05
PROVIDERS: PCP Internal Medicine; Visit Provider Internal Medicine
DX: E55.9 Vitamin D deficiency, unspecified (principal)
CPT/HCPCS: 36415; 82306

== ENCOUNTER 2024-05-14 13:42 | Outpatient (AMB) | payer OTHER, SELFPAY ==
--- NOTE | 2024-05-14 13:43 | MHC.PC.OV ---
Vital Signs 05/14/24 13:44 Height 5 ft 9 in Weight 202 lb BMI 29.8 BP 112/78 Blood Pressure Location Lt brachial Position Sitting Pulse 76 Pulse Source Pulse Oximeter Pulse Oximetry (%) 98 Oxygen Delivery Method Room Air Intake Visit Reasons: Transfer from [facility]/Vitamin D def Intake Note: pt is here for transfer of care from [facility]. Allergies No Known Allergies Allergy (Verified 05/14/24 13:45) Medication List - Last Reconciled 05/14/24 by Angelina Rowley MD No Known Home Meds Tobacco use date assessed: 02/06/24 Dental Screening Dental Screen Date: 12/29/23 HPI Transfer from [facility]/Vitamin D [facility] HPI Details Patient presents for the follow-up of chronic lower back pain. MRI results discussed with the patient. He denies weakness or numbness in extremities, change in bowel or bladder function. He has not started physical therapy yet [facility] Surgical History History of root canal procedure Family History Mother No known problems Father High blood pressure Diabetes Social History Housing: House Alcohol intake: current Alcohol intake frequency: holidays/special occasions only Alcohol type: beer Patient Tobacco Use Status: Never used Tobacco e-Cigarette/Vaping Use: Never Used service: Yes (active duty, [employer] ) Current occupational status: employed Current occupational exposures/hazards: No Cognitive needs: No Hearing needs: No Vision needs: No Questionnaire Thrive Questionnaire Date Thrive assessed: 12/01/23 THAO-7 AMB Questionnaire THAO-7 Date THAO - 7 assessed: 12/01/23 Source: Developed by Drs. Marvin Clark, Alta Ruth, Matt Agustin and colleagues, with an educational yenni from [employer]. Review of Systems Const All systems reviewed & are unremarkable except as noted in HPI and below Card Reports no additional complaints Resp Reports no additional complaints GI Reports no additional complaints Physical exam (Primary Care) Vital Signs: Last Vital Signs Pulse 76 05/14/24 13:44 BP 112/78 05/14/24 13:44 Pulse Ox 98 05/14/24 13:44 Oxygen Delivery Method Room Air 05/14/24 13:44 BMI result Body Mass Index 29.8 Tobacco/Smoking Status: Tobacco use Status Tobacco use date assessed 02/06/24 05/14/24 13:47 Patient Tobacco Use Status Never used Tobacco 05/14/24 13:47 e-Cigarette/Vaping Use Never Used 05/14/24 13:47 Thrive Assessment: Date of Thrive Assessment Date Thrive assessed 12/01/23 05/14/24 13:47 Const General: no acute distress HENMT Mouth: Normal oral and palatal mucosa present Resp Effort & Inspection: normal respiratory effort Auscultation: clear to auscultation bilaterally Cardio Rhythm: regular rhythm Heart sounds: S1 normal heart sound present and S2 normal heart sound present GI Inspection: Yes normal to inspection Back/Spine/Pelvis Other: Paraspinal tenderness lower lumbar region straight leg rising 90 degrees bilaterally, deep tendon reflexes 1+ bilaterally motor strength 5/5 bilaterally Coding Level of Care Code Est Pt Level 3 (82313) Diagnoses Degenerative joint disease (DJD) of lumbar spine M47.816 Assessment & Plan Assessment & Plan (1) Degenerative joint disease (DJD) of lumbar spine: Code(s): M47.816 - Spondylosis without myelopathy or radiculopathy, lumbar region Category: Medical Plan: Referred to physical therapy. Increasing core muscle strength prevent getting back injury discussed with the patient. Orders: Orders PT Evaluation and Treatment Today M47.816 - Spondylosis without myelopathy or radiculopathy, lumbar region
[2024-05-14 13:44] VITALS: BP 112/78; PULSE 76; O2SAT 98; BMI 29.8
== END 2024-05-14 14:24 | disposition home or self-care (01) ==
PROVIDERS: PCP Nurse Practitioner Primary Care; Visit Provider Internal Medicine
DX: M47.816 Spondylosis without myelopathy or radiculopathy, lumbar region (principal)

== ENCOUNTER → 2024-05-14 13:42 | Outpatient (BNVA) | payer OTHER, SELFPAY | PROVIDERS: PCP Nurse Practitioner Primary Care; Visit Provider Internal Medicine | DX: M47.816 Spondylosis without myelopathy or radiculopathy, lumbar region (principal) | CPT/HCPCS: 99212 ==

== ENCOUNTER 2024-06-16 10:38 | Outpatient (AMB) | payer OTHER, SELFPAY ==
[2024-06-16 10:42] VITALS: BP 110/80; PULSE 84; O2SAT 97; BMI 29.5
--- NOTE | 2024-06-16 10:42 | MHC.PC.OV ---
Vital Signs 06/16/24 10:42 Height 5 ft 9 in Weight 200 lb BMI 29.5 BP 110/80 Blood Pressure Location Lt brachial Position Sitting Pulse 84 Pulse Source Pulse Oximeter Pulse Oximetry (%) 97 Oxygen Delivery Method Room Air Intake Visit Reasons: 1 months f/up Intake Note: Pt is here today for 1 month follow up visit. Allergies No Known Allergies Allergy (Verified 06/16/24 10:44) Medication List - Last Reconciled 06/16/24 by Angelina Rowley MD No Known Home Meds Tobacco use date assessed: 06/16/24 Dental Screening Dental Screen Date: 12/29/23 HPI 1 months f/up HPI Details Pt presents for f/u chronic lower back pain due to degenerative joint disease. Patient has started physical therapy 2 weeks ago and is feeling slightly better. [facility] Surgical History History of root canal procedure Family History Mother No known problems Father High blood pressure Diabetes Social History Housing: House Alcohol intake: current Alcohol intake frequency: holidays/special occasions only Alcohol type: beer Patient Tobacco Use Status: Never used Tobacco e-Cigarette/Vaping Use: Never Used service: Yes (active duty, [employer] ) Current occupational status: employed Current occupational exposures/hazards: No Cognitive needs: No Hearing needs: No Vision needs: No Questionnaire Thrive Questionnaire Date Thrive assessed: 12/01/23 I am a: Patient What is your living situation today?: I have a steady place to live Within the past 12 months, did the food you bought not last and you didn't have the money to get more?: Never true Within the past 12 months, did you worry whether your food would run out before you got money to buy more?: I choose not to answer this question Do you have trouble paying for medicines?: I choose not to answer this question Do you have trouble getting transportation to medical appointments?: I choose not to answer this question Do you have trouble paying your heating and electricity bill?: I choose not to answer this question Do you have trouble taking care of your child, family member or friend?: I choose not to answer this question Do you have trouble with day-to-day activities such as bathing, preparing meals, shopping, managing finances, etc.?: I choose not to answer this question Are you currently unemployed and looking for a job?: I choose not to answer this question Are you interested in more education?: I choose not to answer this question Please select the resources that you would like help with: None Currently or been in a relationship where the following occur: I choose not to answer THRIVE Score: 0 AUDIT C Alcohol Use Questionnaire (AUDIT-C) 1. How often do you have a drink containing alcohol?: Never Total Score: 0 THAO-7 AMB Questionnaire THAO-7 Date THAO - 7 assessed: 12/01/23 Feeling nervous, anxious, or on edge: 0 = Not at all Not being able to stop or control worryin = Not at all Worrying too much about different things: 0 = Not at all Trouble relaxin = Not at all Being so restless that it is hard to sit still: 0 = Not at all Becoming easily annoyed or irritable: 0 = Not at all Feeling afraid as if something awful might happen: 0 = Not at all Total THAO-7 score (0-4 normal; 5-9 mild; 10-14 moderate; 15-21 severe): 0 Source: Developed by Drs. Marvin Clark, Alta Ruth, Matt Agustin and colleagues, with an educational yenni from [email or web address]. Review of Systems Const All systems reviewed & are unremarkable except as noted in HPI and below Eyes Reports no additional complaints ENT Reports no additional complaints Card Reports no additional complaints Resp Reports no additional complaints GI Reports no additional complaints Physical exam (Primary Care) Vital Signs: Last Vital Signs Pulse 84 06/16/24 10:42 BP 110/80 06/16/24 10:42 Pulse Ox 97 06/16/24 10:42 Oxygen Delivery Method Room Air 06/16/24 10:42 BMI result Body Mass Index 29.5 Tobacco/Smoking Status: Tobacco use Status Tobacco use date assessed 06/16/24 06/16/24 10:46 Patient Tobacco Use Status Never used Tobacco 06/16/24 10:46 e-Cigarette/Vaping Use Never Used 06/16/24 10:46 Thrive Assessment: Date of Thrive Assessment Date Thrive assessed 12/01/23 06/16/24 10:46 Currently or been in a relationship where the following occur: I choose not to answer Const General: no acute distress Resp Effort & Inspection: normal respiratory effort Auscultation: clear to auscultation bilaterally Cardio Rhythm: regular rhythm Heart sounds: S1 normal heart sound present and S2 normal heart sound present Back/Spine/Pelvis Other: Slight paraspinal tenderness right more than left, straight leg rising 90 degrees bilaterally, motor strength 5/5 bilaterally Coding Level of Care Code Est Pt Level 3 (13266) Diagnoses Encounter for physical examination Z00.00 Vitamin D deficiency E55.9 Degenerative joint disease (DJD) of lumbar spine M47.816 Assessment & Plan Assessment & Plan (1) Encounter for physical examination: Comment: Will refer to GI for colonoscopy 11/2023 Code(s): Z00.00 - Encounter for general adult medical examination without abnormal findings Category: Medical Plan: Scheduled physical in November with a fasting labs before (2) Vitamin D deficiency: Comment: Patient currently taking 2000 units vitamin D3 per day. Code(s): E55.9 - Vitamin D deficiency, unspecified Category: Medical Plan: Continue vitamin-D 7 (3) Degenerative joint disease (DJD) of lumbar spine: Code(s): M47.816 - Spondylosis without myelopathy or radiculopathy, lumbar region Category: Medical Plan: Continue physical therapy and regular lower back exercises Orders: Orders Lipid Panel 6 Months E55.9 - Vitamin D deficiency, unspecified, Z00.00 - Encounter for general adult medical examination without abnormal findings TSH reflex Free T4 6 Months E55.9 - Vitamin D deficiency, unspecified, Z00.00 - Encounter for general adult medical examination without abnormal findings Triiodothyronine T3 Free 6 Months E55.9 - Vitamin D deficiency, unspecified, Z00.00 - Encounter for general adult medical examination without abnormal findings Vitamin D 25-OH Total 6 Months E55.9 - Vitamin D deficiency, unspecified, Z00.00 - Encounter for general adult medical examination without abnormal findings UA w Microscopic 6 Months E55.9 - Vitamin D deficiency, unspecified, Z00.00 - Encounter for general adult medical examination without abnormal findings Comprehensive Bieber. Panel Fast 6 Months E55.9 - Vitamin D deficiency, unspecified, Z00.00 - Encounter for general adult medical examination without abnormal findings Complete Blood Count Auto Diff 6 Months E55.9 - Vitamin D deficiency, unspecified, Z00.00 - Encounter for general adult medical examination without abnormal findings
== END 2024-06-16 11:21 | disposition home or self-care (01) ==
PROVIDERS: PCP Internal Medicine; Visit Provider Internal Medicine
DX: Z00.00 Encounter for general adult medical examination without abnormal findings (principal); E55.9 Vitamin D deficiency, unspecified; M47.816 Spondylosis without myelopathy or radiculopathy, lumbar region

== ENCOUNTER → 2024-06-16 10:38 | Outpatient (BNVA) | payer OTHER, SELFPAY | PROVIDERS: PCP Internal Medicine; Visit Provider Internal Medicine | DX: E55.9 Vitamin D deficiency, unspecified (principal); M47.816 Spondylosis without myelopathy or radiculopathy, lumbar region | CPT/HCPCS: 99212 ==

== ENCOUNTER 2024-07-05 14:30 | Outpatient (AMB) | payer OTHER, SELFPAY ==
--- NOTE | 2024-07-05 14:42 | A.OFFVIS_ITS ---
Vital Signs 07/05/24 14:43 Height 5 ft 9 in Intake Visit Reasons: 7 Month F/U Intake Note: Patient presents for 7 month follow up. Allergies No Known Allergies Allergy (Verified 07/05/24 14:50) HPI Comments Details: 44 year old male referred to us for sleep apnea evaluation by his PCP. He wakes up gasping for air, snores loudly, stops breathing per his . He has excessive daytime sleepiness and takes naps at lunchtime. Bedtime is Has erratic sleep hours wakes up at 1-2 am is unable to go back to sleep. He has nightmares and hallucinates, pmh of sleep walking and talking in his sleep. Legs are painful at night they are worse, numbness, tingling and needs to move his feet to get to sleep, has difficulty falling asleep. 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 Mood is low. Memory forgetful, at baseline, writes things down, takes lots of notes, family has to remind him to do tasks, uses phone reminders. Diet is poor at baseline, loss of interest in things he once enjoyed. Plays soccer, does nico and community work, is and feels is very strong part of his life. Denies smoking, alcohol use. Patient was seen by myslef with Dr. Toth. [facility] Surgical History History of root canal procedure Family History Mother No known problems Father High blood pressure Diabetes Social History Housing: House Alcohol intake: current Alcohol intake frequency: holidays/special occasions only Alcohol type: beer Patient Tobacco Use Status: Never used Tobacco e-Cigarette/Vaping Use: Never Used service: Yes (active duty, [employer] ) Current occupational status: employed Current occupational exposures/hazards: No Cognitive needs: No Hearing needs: No Vision needs: No Review of Systems Const All systems reviewed & are unremarkable except as noted in HPI and below ENT Reports Normal hearing present Neuro Reports Normal hearing present Physical Exam Const General: cooperative, comfortable and no acute distress Nutritional Appearance: average body habitus Orientation/consciousness: patient oriented x3 Eyes Pupils: Equal, round and reactive pupils present Resp Effort & Inspection: normal respiratory effort and able to speak in complete sentences Neuro General: patient oriented x3 and moves all extremities Cranial nerves: Yes CN's II-XII intact bilaterally, Yes Equal, round and reactive pupils present, Yes Normal accommodation reflex present, Yes Nystagmus not present, Yes Normal facial strength present, Yes Midline tongue present, Yes Normal hearing present, Yes Ability to bilaterally rotate head present and Yes Ability to bilaterally elevate shoulders present Motor exam (neuro): 5/5 motor strength present throughout, Pronator motor function not present and Normal motor muscle tone present throughout Deep tendon reflexes (DTR's): Right triceps reflex intensity grade: 2+, Left triceps reflex intensity grade: 2+, Rt Biceps (C5, C6): 2+, Left biceps reflex intensity grade: 2+, Right brachioradialis reflex intensity grade: 2+, Left brachioradialis reflex intensity grade: 2+, Right patellar reflex intensity grade: 2+ and Left patellar reflex intensity grade: 2+ Coordination: [id number] test normal Psych Appearance: well kempt Affect: normal affect Attitude: cooperative Thought process: Normal thought process present Thought content: Normal thought content present Insight: Good insight present (Psych) Judgement: Good judgement present (Psych) Assessment & Plan Assessment & Plan (1) Excessive daytime sleepiness: Code(s): G47.19 - Other hypersomnia Category: Medical (2) Sleep difficulties: Code(s): G47.9 - Sleep disorder, unspecified Category: Medical (3) Snoring: Code(s): R06.83 - Snoring Category: Medical (4) Sleep apnea with cognitive complaints: Code(s): G47.30 - Sleep apnea, unspecified; R41.9 - Unspecified symptoms and signs involving cognitive functions and awareness Category: Medical Plan Sleep apnea Evaluation: -Patient advised to get at least 7-8 hours of sleep per night. -Going to bed at a scheduled time and waking up at a set scheduled time, helps to regulate the (sleep, body temperature hormone release) - balances the natural circadian rhythm. -Cool, dark environment with soft music, no electronic devices, sets the environment optimizing sleep. -Daily exercise, night time yoga, soft music, diffusing essential oils can help. -Limit caffeine, and fluids to four hours prior to bed. -Will send him for a Polysomnography to evaluate periodic limb movements, thrashing behavior, sleep walking, screaming (abnormal sleep behaviors). Orders: Orders RT PSG in-lab sleep study 07/05/24 G47.19 - Other hypersomnia, G47.9 - Sleep disorder, unspecified, R06.83 - Snoring Medications: New magnesium oxide Help with sleep, and muscle. 400 mg PO DAILY 30 tabs 1RF Coding Level of Care Code Est Pt Level 3 (04301) Diagnoses Excessive daytime sleepiness G47.19 Sleep difficulties G47.9 Snoring R06.83 Sleep apnea with cognitive complaints G47.30; R41.9 Time Spent (min) 30 Comment Sleep evaluation Obstructive Sleep Apnea Patient is having a sleep study for: snoring, witnessed apneas, daytime sleepiness and leg movement Sleeping on side has: no effect Patient goes to sleep at: 11pm Patient wakes at: 1-2am go to the bathroom, difficult to fall back asleep How does the patient feel upon waking: tired Patient has morning headaches: Yes Patient naps during the day: Yes Patient falls asleep inappropriately during the day: No Patient has drowsiness while driving: Yes Patient falls asleep while driving: No Patient has difficulty concentrating during activity such as watching TV or reading: Yes There is a family history of obstructive sleep apnea: No Narcoleptic symptoms: Reports unusual limb movements at night, sleep-walking type activity and Other (talking in sleep ) Patient has had a polysomnogram: No CPAP/BIPAP use: not prescribed Sleep Questionnaire Difficulty falling asleep: No Difficulty staying asleep?: Yes Number of arousals: multiple Snoring: Yes Witnessed apneas: Yes Gasping arousals: Yes Nocturia: Yes (2-3 times per night) GERD: Yes Vivid dreams: No Acting out dreams: Yes Abnormal behavior in sleep: Yes Abnormal movements in sleep: Yes Morning headaches: Yes Excessive daytime sleepiness: Yes Daytime naps: Yes Restless legs: Yes Hallucinations: Yes Sleep paralysis: No Drop attacks: No Sleep Study: No CPAP: No
== END 2024-07-05 15:41 | disposition home or self-care (01) ==
PROVIDERS: Visit Provider Nurse Practitioner Family
DX: G47.19 Other hypersomnia (principal); G47.9 Sleep disorder, unspecified; R06.83 Snoring; G47.30 Sleep apnea, unspecified; R41.9 Unspecified symptoms and signs involving cognitive functions and awareness
CPT/HCPCS: 99213

== ENCOUNTER → 2024-07-05 14:30 | Outpatient (BNVA) | payer OTHER, SELFPAY | PROVIDERS: Visit Provider Nurse Practitioner Family | DX: G47.19 Other hypersomnia (principal); G47.9 Sleep disorder, unspecified; G47.30 Sleep apnea, unspecified; R06.83 Snoring; R40.0 Somnolence; R41.9 Unspecified symptoms and signs involving cognitive functions and awareness; Z91.85 Personal history of military service | CPT/HCPCS: 99212 ==

== ENCOUNTER 2024-08-02 08:45 | Outpatient (AMB) | payer OTHER, SELFPAY ==
[2024-08-02 08:48] VITALS: BP 106/80; PULSE 69; O2SAT 97; BMI 29.1
--- NOTE | 2024-08-02 08:48 | A.OFFPC_ITS ---
Vital Signs 08/02/24 08:48 Height 5 ft 9 in Weight 197 lb BMI 29.1 BP 106/80 Blood Pressure Location Lt brachial Position Sitting Pulse 69 Pulse Source Pulse Oximeter Pulse Oximetry (%) 97 Oxygen Delivery Method Room Air Intake Visit Reasons: 1 months follow up Intake Note: Pt is here today for 1 month follow up visit. Allergies No Known Allergies Allergy (Verified 08/02/24 08:48) Medication List - Last Reconciled 08/02/24 by Angelina Rowley MD cholecalciferol (vitamin D3) 50 mcg PO DAILY magnesium oxide 400 mg PO DAILY Tobacco use date assessed: 08/02/24 Dental Screening Dental Screen Date: 08/02/24 Did you have a dental visit in the last 12 months?: Yes Did you have a dental problem in the last 6 months where you did not have access to dental care?: No Was dental information given to patient?: Patient has dentist HPI 1 months follow up HPI Details Pt presents for follow-up of chronic lower back pain. He has been in physical therapy slightly improving but still complains of sensation of numbness and discomfort in the right lower paraspinal region worse when sitting for prolonged time. He denies weakness or numbness in extremities change in bowel or bladder function. Patient reports intermittent tinnitus but has not noticed any change in hearing, headaches or change in balance. [facility] Surgical History History of root canal procedure Family History Mother No known problems Father High blood pressure Diabetes Social History Housing: House Alcohol intake: current Alcohol intake frequency: holidays/special occasions only Alcohol type: beer Patient Tobacco Use Status: Never used Tobacco e-Cigarette/Vaping Use: Never Used service: Yes (active duty, [employer] ) Current occupational status: employed Current occupational exposures/hazards: No Cognitive needs: No Hearing needs: No Vision needs: No Questionnaire PHQ-9 Over the last 2 weeks, how often have you been bothered by any of the following problems? 1. Little interest or pleasure in doing things: not at all 2. Feeling down, depressed, or hopeless: not at all 3. Trouble falling or staying asleep, or sleeping too much: more than half the days 4. Feeling tired or having little energy: not at all 5. Poor appetite or overeating: not at all 6. Feeling bad about yourself - or that you are a failure or have let yourself or your family down: not at all 7. Trouble concentrating on things, such as reading the newspaper or watching television: not at all 8. Moving or speaking so slowly that other people could have noticed. Or the opposite - being so fidgety or restless that you have been moving around a lot more than usual: not at all 9. Thoughts that you would be better off or of hurting yourself in some way: not at all Total score: 2 Depression Screening Interpretation: Negative Depression Screening Done: Yes 88398 - PHQ-9 Billing: Yes Source: Developed by Drs. Marvin Clark, Alta Ruth, Matt Agustin and colleagues, with an educational yenni from [employer]. Thrive Questionnaire Date Thrive assessed: 08/02/24 I am a: Patient What is your living situation today?: I have a steady place to live Within the past 12 months, did the food you bought not last and you didn't have the money to get more?: I choose not to answer this question Within the past 12 months, did you worry whether your food would run out before you got money to buy more?: I choose not to answer this question Do you have trouble paying for medicines?: I choose not to answer this question Do you have trouble getting transportation to medical appointments?: I choose not to answer this question Do you have trouble paying your heating and electricity bill?: I choose not to answer this question Do you have trouble taking care of your child, family member or friend?: I choose not to answer this question Do you have trouble with day-to-day activities such as bathing, preparing meals, shopping, managing finances, etc.?: I choose not to answer this question Are you currently unemployed and looking for a job?: I choose not to answer this question Are you interested in more education?: I choose not to answer this question Please select the resources that you would like help with: None Currently or been in a relationship where the following occur: I choose not to answer THRIVE Score: 0 AUDIT C Alcohol Use Questionnaire (AUDIT-C) 1. How often do you have a drink containing alcohol?: Never 3. How often do you have six or more drinks on one occasion?: Never Total Score: 0 THAO-7 AMB Questionnaire THAO-7 Date THAO - 7 assessed: 08/02/24 Feeling nervous, anxious, or on edge: 2 = More than half the days Not being able to stop or control worryin = Not at all Worrying too much about different things: 0 = Not at all Trouble relaxin = Not at all Being so restless that it is hard to sit still: 0 = Not at all Becoming easily annoyed or irritable: 0 = Not at all Feeling afraid as if something awful might happen: 0 = Not at all Total THAO-7 score (0-4 normal; 5-9 mild; 10-14 moderate; 15-21 severe): 2 Source: Developed by Drs. Marvin Clark, Alta Ruth, Matt Agustin and colleagues, with an educational yenni from [employer]. THAO-7 Assessment Billing THAO-7 Assessment Tool: THAO-7 Assessment 35747 Review of Systems Const All systems reviewed & are unremarkable except as noted in HPI and below Eyes Reports no additional complaints ENT Reports no additional complaints Card Reports no additional complaints Resp Reports no additional complaints GI Reports no additional complaints Reports no additional complaints Physical exam (Primary Care) Vital Signs: Last Vital Signs Pulse 69 08/02/24 08:48 BP 106/80 08/02/24 08:48 Pulse Ox 97 08/02/24 08:48 Oxygen Delivery Method Room Air 08/02/24 08:48 BMI result Body Mass Index 29.1 Tobacco/Smoking Status: Tobacco use Status Tobacco use date assessed 08/02/24 08/02/24 08:51 Patient Tobacco Use Status Never used Tobacco 08/02/24 08:51 e-Cigarette/Vaping Use Never Used 08/02/24 08:51 PHQ-9: PHQ-9 Score PHQ-9: Total score 2 08/02/24 08:54 Depression Screening Interpretation: Negative Thrive Assessment: Date of Thrive Assessment Date Thrive assessed 08/02/24 08/02/24 08:54 Currently or been in a relationship where the following occur: I choose not to answer Const General: no acute distress HENMT Head: Yes normal to inspection Ears: TM's normal bilaterally Throat: Yes posterior oropharynx normal Eyes General: appearance normal, both eyes and all related structures Neck Neck: Yes no lymphadenopathy and Yes supple Resp Effort & Inspection: normal respiratory effort Auscultation: clear to auscultation bilaterally Cardio Rhythm: regular rhythm Heart sounds: S1 normal heart sound present and S2 normal heart sound present Back/Spine/Pelvis Thoracic/Lumbar Spine: thoracic and lumbar spine normal to inspection and straight leg raise negative bilaterally Neuro Motor exam (neuro): 5/5 motor strength present throughout Coding Level of Care Code Est Pt Level 3 (21762) Diagnoses Tinnitus H93.19 Degenerative joint disease (DJD) of lumbar spine M47.816 Additional Codes THAO-7 Assessment Billing - THAO-7 Assessment Tool: THAO-7 Assessment 42720 ([id number]) PHQ-9 - 46344 - PHQ-9 Billing: Yes ([id number]) Assessment & Plan Assessment & Plan (1) Tinnitus: Code(s): H93.19 - Tinnitus, unspecified ear Category: Medical Plan: Referred for hearing test. Patient was advised to use ear protection when exposed to loud noise (2) Degenerative joint disease (DJD) of lumbar spine: Code(s): M47.816 - Spondylosis without myelopathy or radiculopathy, lumbar region Category: Medical Plan: Continue lower back exercises and lifestyle and physical activity modification. Form for restrictions of physical fitness test filled out for 1 year. Orders: Referrals Speech and Hearing Referral H93.19 - Tinnitus, unspecified ear
== END 2024-08-02 10:25 | disposition home or self-care (01) ==
PROVIDERS: PCP Internal Medicine; Visit Provider Internal Medicine
DX: H93.19 Tinnitus, unspecified ear (principal); M47.816 Spondylosis without myelopathy or radiculopathy, lumbar region

== ENCOUNTER → 2024-08-02 08:45 | Outpatient (BNVA) | payer OTHER, SELFPAY | PROVIDERS: PCP Internal Medicine; Visit Provider Internal Medicine | DX: H93.19 Tinnitus, unspecified ear (principal); M47.816 Spondylosis without myelopathy or radiculopathy, lumbar region | CPT/HCPCS: 96127; 99212 ==

== ENCOUNTER 2024-08-12 09:16 | Outpatient (REF) | payer OTHER, SELFPAY | END 2024-08-12 09:17 | disposition home or self-care (01) | LOC: HO.SH 09:16 | PROVIDERS: Visit Provider Internal Medicine | DX: Z01.118 Encounter for examination of ears and hearing with other abnormal findings (principal); H93.13 Tinnitus, bilateral | CPT/HCPCS: 92557; 92567; 92588 ==

== ENCOUNTER → 2024-09-07 10:02 | Outpatient (REF) | payer OTHER, SELFPAY | LOC: HO.SL 10:02 | PROVIDERS: PCP Internal Medicine; Visit Provider Physician Assistant Medical | DX: G47.30 Sleep apnea, unspecified (principal); G47.9 Sleep disorder, unspecified; R41.9 Unspecified symptoms and signs involving cognitive functions and awareness | CPT/HCPCS: 95806 ==

== ENCOUNTER → 2024-09-07 10:16 | Outpatient (BNV) | payer OTHER, SELFPAY | PROVIDERS: PCP Internal Medicine; Visit Provider Psychiatry & Neurology Neurology | DX: R06.83 Snoring (principal); G47.10 Hypersomnia, unspecified | CPT/HCPCS: 95806 ==

== ENCOUNTER 2024-09-08 07:00 | Outpatient (RCR) | payer OTHER, SELFPAY ==
--- NOTE | 2024-06-02 13:52 | MHC.PT.EP ---
[facility] [place] [facility] [place] [facility] [place] [facility] [address] Carmina Sorto [address] [phone] F: [phone] F: [phone] F: [phone] F: [phone] Physical Therapy Plan of Care Date of Evaluation: 06/02/24 Date of Surgery: Diagnosis: low back pain, Assessment: Patient is a 44 year old R handed male who presents with s/s consistent with low back pain. He works with daily job demands including [employer]. Patient past medical history is otherwise unremarkable. MRI shows significant findings as described in imaging report. Current impairments include pain, posture, flexibility, ROM, strength, activity tolerance and functional mobility. Functional limitations include decreased ability to bend, lift, sleep, carry, push, pull, and drive. Patient is motivated with good rehab potential. Skilled PT will address impairments and functional limitations in order to achieve goals. Frequency and Duration: The patient will be seen 2x/week for 5 weeks Short Term Goals: I with HEP - 2 weeks AROM rotation 100% and pain free - 3 weeks s/s centralized - 3 weeks able to sleep pain free - 3 weeks Ski Instructor Goals: return to running pain free - 5 weeks Oswestry 20% or less - 5 weeks restore normal tissue tension - 5 weeks Max pain with activities - /10 - 5 weeks Treatment Plan: Modalities to reduce pain, spasms and effusion. Manual therapy to restore motion and function. Therapeutic exercise to improve strength and flexibility. Neuromuscular re-education for posture and balance. Therapeutic activities to return to functional activities of daily living. Electronically signed by: Oswald Duong, PT Please sign and return to therapist. Thank you for your referral.
--- NOTE | 2024-10-15 07:32 | MHC.PT.DC ---
[facility] [place] Office [address] Carmina Sorto [address] [phone] F: [phone] F: [phone] F: [phone] F: [phone] Physical Therapy Discharge Report Diagnosis: low back pain, Date of Surgery: Date of Evaluation: 06/02/24 Date of Discharge: 09/15/24 Treatments to Date: 9 Cancellations to Date: No Shows to Date: Discharge Status: Improved Function Independent with HEP Discharge Summary: 09/08/24: pt has been compliant and motivated throughout. he is I with HEP. AROM rotation 100% and pain free. s/s centralized and able to sleep pain free. His oswestry 70% indicating residual limitation is still present and we have not attempted running. Tissue tension is normal and his max pain with activities has improved. We will d/c to established HEP at this time to continue to pursue progress independently. 08/26/24: s/s stable. no new s/s. good flex. we will progress body mechanics NV. 08/11/24: pt progressing well. improved carryover and more I with program. good mechanics and fewer cues required. continue to progress as tolerated and we will taper down to 1x every two weeks to encourage pt to become more I with program at home. He is I with HEP. AROM is 100% b/l. s/s centralized. he is able to sleep pain free. We will attempt to run next visit on TM program. Tissue tension is normal. 07/29/24: pt progressing well with skilled PT. no adverse reactions. continue to progress as tolerated. 07/15/24: pt progressing well. skilled PT has been successful in reducing s/s. we have been progressing core stab ex as well. 07/08/24: pt progressing well. no s/s today. continue to progress with core/hip strength and higher level ex with focus on body mechanics and postures. 06/23/24: pt progressing well. no s/s today. progressed resistance with standing hip. progress as tolerated. 06/17/24: pt progressing well with skilled PT. reduced s/s, min discomfort still present on R hip. continue to progress as tolerated. 06/10/24: reduced s/s overall. able to add stretching and progress to PPU only. assess response and progress as tolerated. Patient is a 44 year old R handed male who presents with s/s consistent with low back pain. He works with daily job demands including [employer]. Patient past medical history is otherwise unremarkable. MRI shows significant findings as described in imaging report. Current impairments include pain, posture, flexibility, ROM, strength, activity tolerance and functional mobility. Functional limitations include decreased ability to bend, lift, sleep, carry, push, pull, and drive. Patient is motivated with good rehab potential. Skilled PT will address impairments and functional limitations in order to achieve goals. Normal skin appearance post IFC. Electronically signed by: Oswald Duong, PT Please sign and return to therapist. Thank you for your referral.
== END 2024-10-15 07:33 | disposition home or self-care (01) ==
LOC: HO.PTCHIC 07:00
PROVIDERS: PCP Internal Medicine; Visit Provider Nurse Practitioner Primary Care
DX: M54.41 Lumbago with sciatica, right side (principal)
CPT/HCPCS: 97014; 97110; 97162

== ENCOUNTER 2024-10-06 14:58 | Outpatient (AMB) | payer OTHER, SELFPAY ==
--- NOTE | 2024-10-06 15:03 | MHC.OFFVIS ---
Vital Signs 10/06/24 15:04 Height 5 ft 9 in Weight 202 lb BMI 29.8 BP 116/70 Blood Pressure Location Rt brachial Position Sitting Pulse 74 Pulse Source Pulse Oximeter Pulse Oximetry (%) 98 Oxygen Delivery Method Room Air Intake Visit Reasons: Follow Up 3mo Intake Note: Patient presents for 3 month follow up for snoring. Sleep study in chart and done on 09/13/24 [employer] Laboratory Technician Required: No Accompanied by: Self / Same As Patient Allergies No Known Allergies Allergy (Verified 10/06/24 15:11) HPI Comments Details: 44 year old male referred to us for sleep apnea evaluation by his PCP. AHI was <1 and Oxygen was Mohit 89% He still c/o gasping for air, snoring loudly, and stops breathing per his . He has excessive daytime sleepiness and takes naps at lunchtime. He continues to have fragmented sleep, waking up at 2:30am and is unable to go back to sleep. He has nightmares, sometimes hallucinates, and sleep walks and talks in sleep. 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 His feet hurt, worse at night with numbness, and tingling, he needs to move his feet to get to sleep. Mood is low, he gets depressed about his mobility and future. Memory forgetful, at baseline, writes things down, takes lots of notes, family has to remind him to do tasks, uses phone reminders. Diet is poor at baseline, loss of interest in activities he once enjoyed. He goes to the gym 3x a week, lifts weights and runs 15min, he is trying to improve his LB strength and lose weight. He denies smoking, and or alcohol use. [facility] Surgical History History of root canal procedure Family History Mother No known problems Father High blood pressure Diabetes Social History Housing: House Alcohol intake: current Alcohol intake frequency: holidays/special occasions only Alcohol type: beer Patient Tobacco Use Status: Never used Tobacco e-Cigarette/Vaping Use: Never Used service: Yes (active duty, [employer] ) Current occupational status: employed Current occupational exposures/hazards: No Cognitive needs: No Hearing needs: No Vision needs: No Physical Exam Vital Signs: Last Vital Signs Pulse 74 10/06/24 15:04 BP 116/70 10/06/24 15:04 Pulse Ox 98 10/06/24 15:04 Oxygen Delivery Method Room Air 10/06/24 15:04 BMI result Body Mass Index 29.8 Results Reviewed Results Reviewed: At L3-L4, multifactorial degenerative changes result in severe left subarticular zone stenosis with compression of the traversing left L4 nerve root, mild central canal stenosis, and mild bilateral foraminal encroachment. * At L4-L5, multifactorial degenerative changes result in mild central canal stenosis, narrowing of the subarticular zones with mild mass effect on the traversing L5 nerve roots bilaterally, and mild bilateral foraminal encroachment. There are Modic type I endplate signal changes at this level. Assessment & Plan Assessment & Plan (1) Excessive daytime sleepiness: Code(s): G47.19 - Other hypersomnia Category: Medical (2) Sleep difficulties: Code(s): G47.9 - Sleep disorder, unspecified Category: Medical (3) Fatigue due to sleep pattern disturbance: Code(s): R53.83 - Other fatigue; G47.9 - Sleep disorder, unspecified Category: Medical (4) Fatigue due to sleep pattern disturbance: Code(s): R53.83 - Other fatigue; G47.9 - Sleep disorder, unspecified Category: Medical (5) Fatigue due to sleep pattern disturbance: Code(s): R53.83 - Other fatigue; G47.9 - Sleep disorder, unspecified Category: Medical (6) Fatigue due to sleep pattern disturbance: Code(s): R53.83 - Other fatigue; G47.9 - Sleep disorder, unspecified Category: Medical (7) Sleep apnea with cognitive complaints: Code(s): G47.30 - Sleep apnea, unspecified; R41.9 - Unspecified symptoms and signs involving cognitive functions and awareness Category: Medical (8) Snoring: Code(s): R06.83 - Snoring Category: Medical Plan Sleep apnea Evaluation in lab PSG Will send him for a Polysomnography to evaluate periodic limb movements, behavior, sleep walking, and (abnormal sleep behaviors). Low Back Pain PT and Flexiril 5mg PO PRN Labs R/O deficiencies Orders: Orders Complete Blood Count no Diff Today G47.9 - Sleep disorder, unspecified, R53.83 - Other fatigue Comprehensive Met. Panel Today G47.9 - Sleep disorder, unspecified, R53.83 - Other fatigue Hemoglobin A1c Today G47.9 - Sleep disorder, unspecified, R53.83 - Other fatigue IRON PROFILE Today G47.9 - Sleep disorder, unspecified, R53.83 - Other fatigue Homocysteine Today G47.9 - Sleep disorder, unspecified, R53.83 - Other fatigue Vitamin B12 and Folate Today G47.9 - Sleep disorder, unspecified, R53.83 - Other fatigue RT PSG in-lab sleep study Today G47.19 - Other hypersomnia, G47.30 - Sleep apnea, unspecified, G47.9 - Sleep disorder, unspecified, R41.9 - Unspecified symptoms and signs involving cognitive functions and awareness, R53.83 - Other fatigue PT Evaluation and Treatment Today M54.32 - Sciatica, left side Ferritin Today G47.9 - Sleep disorder, unspecified, R53.83 - Other fatigue Methylmalonic Acid Today G47.9 - Sleep disorder, unspecified, R53.83 - Other fatigue Vitamin D 25-OH Total Today G47.9 - Sleep disorder, unspecified, R53.83 - Other fatigue TSH reflex Free T4 Today F09 - Unspecified mental disorder due to known physiological condition Medications: New cyclobenzaprine Take one tablet daily by mouth at bedtime. 5 mg PO BEDTIME 90 tabs 1RF Low Back Pain 90 days MDD 10mg M62.838 - Other muscle spasm Patient Instructions: Patient advised to get at least 7-8 hours of sleep per night. Going to bed at a scheduled time and waking up at a set scheduled time, helps to regulate the (sleep, body temperature hormone release) - balances the natural circadian rhythm. Cool, dark environment with soft music, no electronic devices, sets the environment optimizing sleep. Daily exercise, night time yoga, soft music, diffusing essential oils can help. Limit caffeine to one cup a day, limit fluid intake 2-4 hours prior to bed. Coding Level of Care Code Est Pt Level 4 (39833) Diagnoses Excessive daytime sleepiness G47.19 Sleep difficulties G47.9 Fatigue due to sleep pattern disturbance R53.83; G47.9 Sleep apnea with cognitive complaints G47.30; R41.9 Snoring R06.83 Time Spent (min) 30
[2024-10-06 15:04] VITALS: BP 116/70; PULSE 74; O2SAT 98; BMI 29.8
== END 2024-10-06 16:11 | disposition home or self-care (01) ==
LOC: HO.HSMS 14:59
PROVIDERS: Visit Provider Physician Assistant Medical
DX: G47.19 Other hypersomnia (principal); G47.9 Sleep disorder, unspecified; R53.83 Other fatigue; G47.30 Sleep apnea, unspecified; R41.9 Unspecified symptoms and signs involving cognitive functions and awareness; R06.83 Snoring
CPT/HCPCS: 99214

== ENCOUNTER → 2024-10-06 14:58 | Outpatient (BNVA) | payer OTHER, SELFPAY | PROVIDERS: Visit Provider Physician Assistant Medical | DX: G47.19 Other hypersomnia (principal); G47.9 Sleep disorder, unspecified; G47.30 Sleep apnea, unspecified; R53.83 Other fatigue; R41.9 Unspecified symptoms and signs involving cognitive functions and awareness; R06.83 Snoring | CPT/HCPCS: 99212 ==

== ENCOUNTER 2024-11-02 09:06 | Outpatient (AMB) | payer OTHER, SELFPAY ==
--- NOTE | 2024-11-02 09:18 | A.OFFPC_ITS ---
Vital Signs 11/02/24 09:19 Height 5 ft 9 in Weight 190 lb BMI 28.1 BP 108/70 Blood Pressure Location Lt brachial Position Sitting Respiration 18 Pulse 66 Pulse Source Pulse Oximeter Temp 98.4 F Temp Source Oral Pulse Oximetry (%) 97 Oxygen Delivery Method Room Air Intake Visit Reasons: 3m follow up Intake Note: Pt is here today for 3 months follow up visit. Allergies No Known Allergies Allergy (Verified 11/02/24 09:20) Medication List - Last Reconciled 11/02/24 by Angelina Rowley MD cholecalciferol (vitamin D3) 50 mcg PO DAILY magnesium oxide 400 mg PO DAILY Tobacco use date assessed: 11/02/24 Dental Screening Dental Screen Date: 08/02/24 HPI 3m follow up HPI Details Patient presents for the follow-up of chronic sciatica and degenerative joint disease of lumbar spine. He completed physical therapy and reports persistent lower back pain radiating to right buttock on and off worse when walking long distance or running. Patient had a normal home sleep studies ruling out obstructive sleep apnea. [facility] Surgical History History of root canal procedure Family History Mother No known problems Father High blood pressure Diabetes Social History Housing: House Alcohol intake: current Alcohol intake frequency: holidays/special occasions only Alcohol type: beer Patient Tobacco Use Status: Never used Tobacco e-Cigarette/Vaping Use: Never Used service: Yes (active duty, [employer] ) Current occupational status: employed Current occupational exposures/hazards: No Cognitive needs: No Hearing needs: No Vision needs: No Questionnaire Thrive Questionnaire Date Thrive assessed: 08/02/24 THAO-7 AMB Questionnaire THAO-7 Date THAO - 7 assessed: 08/02/24 Source: Developed by Drs. Marvin Clark, Alta Ruth, Matt Agustin and colleagues, with an educational yenni from [employer]. Review of Systems Const All systems reviewed & are unremarkable except as noted in HPI and below Eyes Reports no additional complaints ENT Reports no additional complaints Card Reports no additional complaints Resp Reports no additional complaints GI Reports no additional complaints Reports no additional complaints Physical exam (Primary Care) Vital Signs: Last Vital Signs Temp 98.4 F 11/02/24 09:19 Pulse 66 11/02/24 09:19 Resp 18 11/02/24 09:19 BP 108/70 11/02/24 09:19 Pulse Ox 97 11/02/24 09:19 Oxygen Delivery Method Room Air 11/02/24 09:19 BMI result Body Mass Index 28.1 Tobacco/Smoking Status: Tobacco use Status Tobacco use date assessed 11/02/24 11/02/24 09:23 Patient Tobacco Use Status Never used Tobacco 11/02/24 09:23 e-Cigarette/Vaping Use Never Used 11/02/24 09:19 Thrive Assessment: Date of Thrive Assessment Date Thrive assessed 08/02/24 11/02/24 09:19 Const General: no acute distress Eyes General: appearance normal, both eyes and all related structures Neck Neck: Yes supple Resp Effort & Inspection: normal respiratory effort Auscultation: clear to auscultation bilaterally Cardio Rhythm: regular rhythm Heart sounds: S1 normal heart sound present and S2 normal heart sound present Back/Spine/Pelvis Other: The slightly decreased range of motion in lumbar spine, straight leg rising 90 degrees bilaterally, motor strength 5/5 deep tendon reflexes 1+ bilaterally Coding Level of Care Code Est Pt Level 4 (49013) Diagnoses Degenerative joint disease (DJD) of lumbar spine M47.816 Fatigue due to sleep pattern disturbance R53.83; G47.9 Assessment & Plan Assessment & Plan (1) Degenerative joint disease (DJD) of lumbar spine: Comment: MR 02/2024 L3-L4 severe left subarticular stenosis, compression of traversing left L5 nerve root, mild central canal stenosis, L4-5 mild central canal s tenosis, mild mass effect on traversing L5 nerve root bilaterally Code(s): M47.816 - Spondylosis without myelopathy or radiculopathy, lumbar region Category: Medical Plan: Patient was advised to see a neurosurgeon but he declined. He will continue home exercises and will chiropractor (2) Fatigue due to sleep pattern disturbance: Code(s): R53.83 - Other fatigue; G47.9 - Sleep disorder, unspecified Category: Medical Plan: For persistent fatigue patient will have blood work today. Sleep hygiene discussed with the patient. He declined counseling. Patient will return for physical in 6 months Orders: Orders Comprehensive Met. Panel Today G47.9 - Sleep disorder, unspecified, R53.83 - Other fatigue Vitamin B12 and Folate Today G47.9 - Sleep disorder, unspecified, R53.83 - Other fatigue Referrals Cologuard Test Z12.11 - Encounter for screening for malignant neoplasm of colon, Z12.12 - Encounter for screening for malignant neoplasm of rectum
[2024-11-02 09:19] VITALS: BP 108/70; PULSE 66; RESP 18; TEMP 36.9; O2SAT 97; BMI 28.1
--- OUTSIDE RECORDS SUMMARY | 2024-11-02 10:01 | XMS_ITS | Continuity of Care Document ---
Author Name [facility] Organization [facility] Care Team Providers Care Pharmacy Technician Name Role Phone [facility] Unavailable Unavailable Problems Combined list of problems from Department of Defense and Veterans Affairs facilities. It does not include entries that were removed or entered in error. Problem Status Onset Date Problem Type Date of Resolution Comments Source Presbyopia Active 11/01/2024 Diagnosis 0310C-AF -C-6 [facility] Encounter for examination of eyes and vision without abnormal findings Active 11/01/2024 Diagnosis 1849B-CN-H-6 6th [facility] Hypermetropia, bilateral Active 11/01/2024 Diagnosis 6993V-LO-N-6 6[facility] Regular astigmatism, left eye Active 11/01/2024 Diagnosis 5777D-PI-Q-6 6[facility] Hypermetropia, bilateral Active Condition 2739H-BY-F-6 6[facility] Presbyopia Active Condition 0310C-AF-C- 6 6th [facility] Regular astigmatism, left eye Active Condition 5697D-JU-Z-6 6[facility] Encounter for examination of eyes and vision without abnormal findings Active Condition 5251A-GQ-L-6 6[facility] Medications Combined list of outpatient medications from Department of Defense and Veterans Affairs facilities.Medications provided include 1) outpatient medications from the last 15 months, and 2) patient-reported medications. Medication Details Route Status Patient Instructions Prescription Expires Prescription Number Last Dispense Date Ordering Provider Order Date Order Qty Source No Known Medications No Known Medicati ons complet ed 8344R-4 39 AMDS Immunizations Combined list of available immunizations from the Department of Defense and Veterans Affairs facilities. Immunization Series Date Given Administered By Site Reaction Lot Number CVX Code Drug Elevator Examiner Status Comments Source influenza, injectable, quadrivalent- pf 2021 [id number] [employer] ne complet ed influenza , injectabl e, quadrival ent-pf 06/13/22 Given Ambulat ory Pharmac y COVID Vaccine Pfizer 2020 [id number] PFIZER complet ed COVID Vaccine Pfizer 03/30/21 Given Ambulat ory Pharmac y COVID Vaccine Pfizer 2020 [id number] PFIZER complet ed COVID Vaccine Pfizer 03/09/21 Given Ambulat ory Pharmac y influenza, injectable, quadrivalent- pf 2019 [id number] 150 Seqirus complet ed influenza , injectabl e, quadrival ent-pf 06/03/20 Given Ambulat ory Pharmac y influenza, injectable, quadrivalent- pf 2018 [id number] 150 Seqirus complet ed influenza , injectabl e, quadrival ent-pf 05/29/19 Given Ambulat ory Pharmac y influenza, injectable, quadrivalent- pf 2017 [id number] GlaxoSmithKli ne complet ed influenza , injectabl e, quadrival ent-pf 06/27/18 Given Ambulat ory Pharmac y Influenza, inj, MDCK, quadrivalent- pf 2016 [id number] Seqirus complet ed Influenza , inj, MDCK, quadrival ent-pf 06/28/17 Given Ambulat ory Pharmac y adenovirus vaccine, live 2016 [id number] 143 Teva Pharmaceutica ls complet ed adenoviru s vaccine, live 12/20/16 Given Ambulat ory Pharmac y poliovirus vaccine, inactivated 2016 [id number] sanofi pasteur complet ed polioviru s vaccine, inactivat ed 12/20/16 Given Ambulat ory Pharmac y tetanus, diphtheria, acellular pertu is 2016 [id number] GlaxoSmithKli ne complet ed tetanus, diphtheri a, acellular pertussis 12/20/16 Given Ambulat ory Pharmac y meningococcal A,C,Y,W-135 (MCV4P) 2016 [id number] sanofi pasteur complet ed meningoco ccal A,C,Y,W-1 35 (MCV4P) 12/20/16 Given Ambulat ory Pharmac y influenza, seasonal, injectable-pf 2015 [id number] Seqirus complet ed influenza , seasonal, injectabl e-pf 05/11/16 Given Ambulat ory Pharmac y Encounters Combined list of: 1) Encounters from [facility] of [facility] facilities going backup to the last 18 months, not all [place] inpatient encounters are included; 2) Encounters from the Department of [facility] facilities going backup to 280 months. Location Location Details Encounter Type Encounter Number Reason For Visit Attending Provider ADM Date DC Date Status Disposition Source 8344R-439 AMDS Between Visit [id number] 04/13 Discharge Disposition: Home or Self Care 8344R-4 39 AMDS 8344R-439 AMDS Between Visit [id number] 08/04 Discharge Disposition: Home or Self Care 8344R-4 39 AMDS 8344R-439 AMDS Between Visit [id number] 10/14 Discharge Disposition: Home or Self Care 8344R-4 39 AMDS 8344R-439 AMDS Outpatient [id number] ERICA SCOT[place]uba 10/30 Discharge Disposition: Home or Self Care 8344R-4 39 AMDS 0310C-AF- C- [facility] [id number] Presbyo mera,Liliana ounter for examina tion of eyes and vision without abnorma l finding s,Hyper metropi a, bilater al,Regu lar astigma tism, left eye SEB ALVAREZGREY 11/01 Discharge Disposition: Home or Self Care 0310C-A F-C-t h [facility] Procedures Combined list of: 1) Procedures from Department of Veterans Affairs facilities going back up to thelast 18 months, not all [place] non-surgical procedures are included; 2) All procedures from the Department of [facility] facilities. Procedure Procedure Type Code Date Perfomer Comments Sourc e No data available for this section Ambulatory P harmacy Social History Combined list of available smoking, tobacco, and other social history from Department of Defense and Veterans Affairs facilities. Social History Type Response Date Comment Sourc e Sex Representation Male (finding) 08/08/2022 Un known Organization Sexual Orientation Ambula tory Pharmacy Gender identity Ambulator y Pharmacy Assessment and Plan Combined list of future care activities from Department of [facility] and Veterans Affairs facilities (e.g., assessment and plan notes, appointments, orders, and referrals). Additional future care activities may be listed in the Plan of Care section. Result Assessment and Plan Date Source Assessment and Plan Extracted from:Title : Eye Care Office Visit Note - REE no DFE Author: SEB CLAY, OD, Optometry Date: 11/01/24 1.?Presbyopia Order readers. No path w/out DFE. Can't be dilated today and will schedule f/u to complete exam.? 2.?Encounter for examination of eyes and vision without abnormal findings 3.?Hypermetropia, bilateral 4.?Regular astigmatism, left eye Extracted from:Title: PHA Author: OSMIN PINO Date: 11/29/23 mbr came in for appt Addendum by OTILIO URIBE on November 29, 2023 15:40 EDT ?Vitals: Blood Pressure:???133/81 Heart Rate:65 Height:69inch Weight:185lbs BMI: Medications: N/A Chronic Problems: ?N/A SF 507: _ Comments:N/A Extracted from:Title: PHA Author: SHIRAZ ALEXANDER Date: 10/05/22 Presents for annual PHA. No issues identified. WWQ. Diagnostic Tests PendingHIV-1/O/2 10/30/24Repository Sample, Serum 10/30/24 11/02/2024 4828H-LH-M-66th [facility] Assessment and Plan Extracted from:Title : Eye Care Office Visit Note - REE no DFE Author: SEB CLAY, OD, Optometry Date: 11/01/24 1.?Presbyopia Order readers. No path w/out DFE. Can't be dilated today and will schedule f/u to complete exam.? 2.?Encounter for examination of eyes and vision without abnormal findings 3.?Hypermetropia, bilateral 4.?Regular astigmatism, left eye Extracted from:Title: PHA Author: OSMIN PINO Date: 11/29/23 mbr came in for appt Addendum by OTILIO URIBE on November 29, 2023 15:40 EDT ?Vitals: Blood Pressure:???133/81 Heart Rate:65 Height:69inch Weight:185lbs BMI: Medications: N/A Chronic Problems: ?N/A SF 507: _ Comments:N/A Extracted from:Title: PHA Author: SHIRAZ ALEXANDER Date: 10/05/22 Presents for annual PHA. No issues identified. WWQ. Diagnostic Tests PendingHIV-1/O/2 10/30/24Repository Sample, Serum 10/30/24 11/02/2024 8344R-[id number] AMDS Functional Status Combined list of recent functional and cognitive assessments recorded at [facility] Defense and [facility] ([facility]).VA Functional Dickey Measurement (FIM) Scale: 1 = Total Assistance (Subject = 0% +), 2 = Maximal Assistance (Subject = 25% +), 3 = Moderate Assistance (Subject = 50% +), 4 = Minimal Assistance (Subject = 75% +), 5 = Supervision, 6 = Modified Dickey (Device), 7 = Complete Dickey (Timely, Safely). Assessment Date/Time Source Assessment Type Assessment Skill Assessment Score Assessment Details No data available for this section
== END 2024-11-02 10:02 | disposition home or self-care (01) ==
LOC: HO.HMCC 09:06
PROVIDERS: Visit Provider Internal Medicine
DX: M47.816 Spondylosis without myelopathy or radiculopathy, lumbar region (principal); R53.83 Other fatigue; G47.9 Sleep disorder, unspecified

== ENCOUNTER → 2024-11-02 09:06 | Outpatient (BNVA) | payer OTHER, SELFPAY | PROVIDERS: Visit Provider Internal Medicine | DX: M47.816 Spondylosis without myelopathy or radiculopathy, lumbar region (principal); R53.83 Other fatigue; G47.9 Sleep disorder, unspecified | CPT/HCPCS: 99212 ==

== ENCOUNTER 2025-01-17 08:47 | Outpatient (REF) | payer OTHER, SELFPAY ==
[2025-01-17 10:22] LABS: MANUAL DIFF FLAG NO
[2025-01-17 10:30] LABS: Basophils Absolute Auto 0.1 X10*3/uL (0.0-0.2); Basophils Percent Auto 1.1 % (0-2); Eosinophils Absolute Auto 0.2 X10*3/uL (0.0-0.4); Eosinophils Percent Auto 4.1 % (0-4); Hematocrit 41.5 % (42.0-52.0); Hemoglobin 14.8 g/dl (14.0-18.0); Imm Gran Abs Auto 0.01 X10*3/uL (0.00-0.03); Imm Gran Pct Auto 0.2 % (0.0-0.4); Mean Corpuscular HGB Conc 35.7 g/dl (31.0-36.0); Mean Corpuscular Hemoglobin 31.3 pg (27.0-33.0); Mean Corpuscular Volume 87.7 fL (80.0-98.0); Mean Platelet Volume 12.6 fL (9.4-12.4); Monocytes Absolute Auto 0.5 X10*3/uL (0.1-1.2); Monocytes Percent Auto 8.5 % (2-11); Neutrophils Absolute Auto 2.6 x10*3/uL (2.0-8.3); Neutrophils Percent Auto 48.1 % (45-73); Platelet Count 167 X10*3/uL (160-400); Red Blood Count 4.73 X10*6/uL (4.60-5.80); Red Cell Distribution Width 11.9 % (11.0-16.0); White Blood Count 5.3 X10*3/uL (4.8-10.8)
[2025-01-17 11:22] LABS: Alanine Aminotransferase 27 U/L (0-40); Albumin Level 4.6 g/dL (3.5-5.0); Alkaline Phosphatase 79 U/L (39-117); Anion Gap 11 (12-20); Aspartate Amino Transferase 27 U/L (5-37); Bilirubin Total 0.4 mg/dL (0.0-1.0); Blood Urea Nitrogen 9 mg/dL (9-16); Calcium 9.3 mg/dL (8.4-10.2); Carbon Dioxide 26 mmol/L (22-29); Chloride 106 mmol/L (96-108); Cholesterol 189 mg/dL (<200); Estimated Glomerular Filt Rate > 60; Glucose Random 86 mg/dL (60-115); HDL Cholesterol 37 mg/dL (>40); LDL Cholesterol Calculated 123 mg/dL (<100); Sodium 139 mmol/L (135-145); TSH reflex Free T4 0.49 uIU/mL (0.32-4.0); Total Protein 7.3 g/dL (6.5-8.0); Triglycerides 145 mg/dL (<150); Vitamin D 25-OH Total 15.1 ng/mL (>30)
[2025-01-17 11:28] LABS: Folate 6.3 ng/mL (> or = 4.0); Vitamin B12 376 pg/mL (200-900)
[2025-01-17 12:53] LABS: Appearance Urine Clear; Color Urine Yellow; Glucose Urine UA Negative (Negative); Leukocyte Esterase Urine Negative (Negative); Nitrite Urine Negative (Negative); Urine Blood Negative (Negative); Urine Ketones Negative (Negative); Urine Protein Negative (Neg-Trace)
[2025-01-17 13:03] LABS: Bacteria Urine None Seen (None Seen); Hyaline Casts Urine 0-2 /LPF (0-2); RBC Urine 0-2 /HPF (0-2); Squamous Epithelial Cell Urine 0-2 /HPF (0-2); WBC Urine 0-5 /HPF (0-5)
[2025-01-18 04:44] LABS: Triiodothyronine T3 Free 3.8 pg/mL (2.3-4.2)
== END 2025-01-17 08:48 | disposition home or self-care (01) ==
LOC: HO.HMGCLDS 08:47
PROVIDERS: PCP Internal Medicine; Referring Provider Internal Medicine; Visit Provider Physician Assistant Medical
DX: Z00.00 Encounter for general adult medical examination without abnormal findings (principal); E55.9 Vitamin D deficiency, unspecified; R53.83 Other fatigue; G47.9 Sleep disorder, unspecified
CPT/HCPCS: 36415; 80053; 80061; 81001; 82306; 82607; 82746; 84443; 84481; 85025

== ENCOUNTER → 2025-01-21 20:30 | Outpatient (REF) | payer OTHER, SELFPAY | LOC: HO.SL 20:30 | DX: G47.30 Sleep apnea, unspecified (principal); R41.9 Unspecified symptoms and signs involving cognitive functions and awareness; R53.83 Other fatigue | CPT/HCPCS: 95810 ==

== ENCOUNTER → 2025-01-21 21:34 | Outpatient (BNV) | payer OTHER, SELFPAY | PROVIDERS: PCP Internal Medicine; Referring Provider Internal Medicine; Visit Provider Psychiatry & Neurology Neurology | DX: G47.10 Hypersomnia, unspecified (principal) | CPT/HCPCS: 95810 ==

== ENCOUNTER 2025-04-07 10:41 | Outpatient (AMB) | payer OTHER, SELFPAY ==
[2025-04-07 10:47] VITALS: BP 118/76; PULSE 72; RESP 18; TEMP 36.7; O2SAT 96; BMI 28.6
--- NOTE | 2025-04-07 10:47 | A.OFFPC_ITS ---
Vital Signs 04/07/25 10:47 Height 5 ft 9 in Weight 194 lb BMI 28.6 BP 118/76 Blood Pressure Location Lt brachial Position Sitting Respiration 18 Pulse 72 Pulse Source Pulse Oximeter Temp 98.0 F Temp Source Oral Pulse Oximetry (%) 96 Oxygen Delivery Method Room Air Intake Visit Reasons: 3m follow up reschedule Intake Note: Pt is here today for 3 months follow up visit. Pt states that his lower back pain is getting worst. Allergies No Known Allergies Allergy (Verified 04/07/25 11:18) Medication List - Last Reconciled 04/07/25 by Angelina Rowley MD cholecalciferol (vitamin D3) 50 mcg PO DAILY 3 months MDD 50mcg / 2000 units daily magnesium oxide 400 mg PO DAILY Tobacco use date assessed: 04/07/25 Dental Screening Dental Screen Date: 08/02/24 HPI 3m follow up reschedule HPI Details Pt presents c/o chronic persistent LBP radiating to RLE getting worse when walking and standing for long time. Patient reports intermittent feeling of tingling and weakness in the right lower extremity when walking up or down the stairs. He denies any change in the bowel habits or urination. Patient reports intermittent epigastric and right upper quadrant discomfort worse after eating. He denies nausea vomiting constipation diarrhea hematochezia melena. Patient complains of chronic right-sided headaches for years and has been taking [id number] Excedrin migraine with some relief initially but no significant improvement lately. Patient denies any change in the vision, nausea vomiting photophobia, change in balance. [facility] Medical History (Updated 04/07/25 @ 11:50 by Angelina Rowley MD) RUQ abdominal pain Chronic headache Excessive daytime sleepiness with normal sleep at night Surgical History History of root canal procedure Family History Mother No known problems Father High blood pressure Diabetes Social History Housing: House Alcohol intake: current Alcohol intake frequency: holidays/special occasions only Alcohol type: beer Patient Tobacco Use Status: Never used Tobacco e-Cigarette/Vaping Use: Never Used service: Yes (active duty, [employer] ) Current occupational status: employed Current occupational exposures/hazards: No Cognitive needs: No Hearing needs: No Vision needs: No Questionnaire PHQ-9 Over the last 2 weeks, how often have you been bothered by any of the following problems? 1. Little interest or pleasure in doing things: not at all 2. Feeling down, depressed, or hopeless: not at all 3. Trouble falling or staying asleep, or sleeping too much: more than half the days 4. Feeling tired or having little energy: not at all 5. Poor appetite or overeating: not at all 6. Feeling bad about yourself - or that you are a failure or have let yourself or your family down: not at all 7. Trouble concentrating on things, such as reading the newspaper or watching television: not at all 8. Moving or speaking so slowly that other people could have noticed. Or the opposite - being so fidgety or restless that you have been moving around a lot more than usual: not at all 9. Thoughts that you would be better off or of hurting yourself in some way: not at all Total score: 2 Depression Screening Interpretation: Negative Depression Screening Done: Yes Source: Developed by Drs. Marvin Clark, Alta Ruth, Matt Agustin and colleagues, with an educational yenni from [employer]. Thrive Questionnaire Date Thrive assessed: 08/02/24 I am a: Patient What is your living situation today?: I have a steady place to live Within the past 12 months, did the food you bought not last and you didn't have the money to get more?: I choose not to answer this question Within the past 12 months, did you worry whether your food would run out before you got money to buy more?: I choose not to answer this question Do you have trouble paying for medicines?: I choose not to answer this question Do you have trouble getting transportation to medical appointments?: I choose not to answer this question Do you have trouble paying your heating and electricity bill?: I choose not to answer this question Do you have trouble taking care of your child, family member or friend?: I choose not to answer this question Do you have trouble with day-to-day activities such as bathing, preparing meals, shopping, managing finances, etc.?: I choose not to answer this question Are you currently unemployed and looking for a job?: I choose not to answer this question Are you interested in more education?: I choose not to answer this question Please select the resources that you would like help with: None Currently or been in a relationship where the following occur: I choose not to answer THRIVE Score: 0 AUDIT C Alcohol Use Questionnaire (AUDIT-C) 1. How often do you have a drink containing alcohol?: Never 3. How often do you have six or more drinks on one occasion?: Never Total Score: 0 THAO-7 AMB Questionnaire THAO-7 Date THAO - 7 assessed: 08/02/24 Not being able to stop or control worryin = Not at all Worrying too much about different things: 0 = Not at all Trouble relaxin = Not at all Being so restless that it is hard to sit still: 0 = Not at all Becoming easily annoyed or irritable: 0 = Not at all Feeling afraid as if something awful might happen: 0 = Not at all Source: Developed by Drs. Marvin Clark, Alta Ruth, Matt Agustin and colleagues, with an educational yenni from [employer]. Review of Systems Const All systems reviewed & are unremarkable except as noted in HPI and below Eyes Reports no additional complaints ENT Reports no additional complaints Card Reports no additional complaints Resp Reports no additional complaints GI Reports no additional complaints Reports no additional complaints Physical exam (Primary Care) Vital Signs: Last Vital Signs Temp 98.0 F 04/07/25 10:47 Pulse 72 04/07/25 10:47 Resp 18 04/07/25 10:47 BP 118/76 04/07/25 10:47 Pulse Ox 96 04/07/25 10:47 Oxygen Delivery Method Room Air 04/07/25 10:47 BMI result Body Mass Index 28.6 Tobacco/Smoking Status: Tobacco use Status Tobacco use date assessed 04/07/25 04/07/25 11:22 Patient Tobacco Use Status Never used Tobacco 04/07/25 10:48 e-Cigarette/Vaping Use Never Used 04/07/25 10:48 PHQ-9: PHQ-9 Score PHQ-9: Total score 2 04/07/25 11:22 Depression Screening Interpretation: Negative Thrive Assessment: Date of Thrive Assessment Date Thrive assessed 08/02/24 04/07/25 10:48 Currently or been in a relationship where the following occur: I choose not to answer Const General: no acute distress HENMT Head: Yes normal to inspection Face and sinus: Yes normal facial exam Throat: Yes posterior oropharynx normal Neck Neck: Yes supple Resp Effort & Inspection: normal respiratory effort Auscultation: clear to auscultation bilaterally Cardio Rhythm: regular rhythm Heart sounds: S1 normal heart sound present and S2 normal heart sound present GI Inspection: Yes normal to inspection Palpation (GI): Soft to palpation and No Rebound tenderness present Percussion: Yes normal to percussion Auscultation: normal bowel sounds Back/Spine/Pelvis Other: Paraspinal tenderness lower lumbar region right more than left, straight leg rising 40 degrees on the right 90 degrees on the left, motor strength 5/5 bilaterally, deep tendon reflexes 1+ bilaterally Coding Level of Care Code Est Pt Level 4 (05243) Diagnoses Degenerative joint disease (DJD) of lumbar spine M47.816 RUQ abdominal pain R10.11 Chronic headache R51.9; G89.29 Assessment & Plan Assessment & Plan (1) Degenerative joint disease (DJD) of lumbar spine: Comment: MR 02/2024 L3-L4 severe left subarticular stenosis, compression of traversing left L5 nerve root, mild central canal stenosis, L4-5 mild central canal stenosis, mild mass effect on traversing L5 nerve root bilaterally Code(s): M47.816 - Spondylosis without myelopathy or radiculopathy, lumbar region Category: Medical Plan: For worsening chronic [place] back pain with radiculopathy symptoms without sustained relief from physical therapy and significant abnormalities on MRI patient will be referred to spine center, meloxicam as prescribed for 2 weeks (2) RUQ abdominal pain: Code(s): R10.11 - Right upper quadrant pain Category: Medical Plan: Obtain abdominal ultrasound to rule out gallstones trial of omeprazole for 2 months, patient has a Cologuard set at home and was advised to complete it (3) Chronic headache: Code(s): R51.9 - Headache, unspecified; G89.29 - Other chronic pain Category: Medical Plan: For chronic daily headaches patient will be referred to Neurology Orders: Orders US abdomen limited Today R10.11 - Right upper quadrant pain Referrals Neurology Referral G89.29 - Other chronic pain, R51.9 - Headache, unspecified Neuro Spine Referral M47.816 - Spondylosis without myelopathy or radiculopathy, lumbar region Medications: New omeprazole 20 mg PO DAILY 30 caps 2RF meloxicam 15 mg PO DAILY 14 tabs 0RF
== END 2025-04-07 11:54 | disposition home or self-care (01) ==
LOC: HO.HMCC 10:42
PROVIDERS: PCP Internal Medicine; Visit Provider Internal Medicine
DX: M47.816 Spondylosis without myelopathy or radiculopathy, lumbar region (principal); R10.11 Right upper quadrant pain; R51.9 Headache, unspecified; G89.29 Other chronic pain

== ENCOUNTER → 2025-04-07 10:41 | Outpatient (BNVA) | payer OTHER, SELFPAY | PROVIDERS: PCP Internal Medicine; Visit Provider Internal Medicine | DX: M47.816 Spondylosis without myelopathy or radiculopathy, lumbar region (principal); R10.11 Right upper quadrant pain; R51.9 Headache, unspecified; G89.29 Other chronic pain | CPT/HCPCS: 96127; 99212 ==

== ENCOUNTER 2025-05-09 07:47 | Outpatient (REF) | payer OTHER, SELFPAY ==
--- NOTE | ~2025-05-09 | US_ITS ---
CLINICAL HISTORY: R10.11 - Right upper quadrant pain --- Additional Notes or Special Instructions: Rule out gallstones US abdomen limited Comparison: None provided Findings: The visualized pancreas is normal. The aorta and inferior vena cava are normal caliber. The appearance of the liver suggests fatty infiltration. There is no intrahepatic bile duct dilatation. The common duct is 4.0 mm in diameter. The gallbladder is normal. There is no sonographic Kebede sign. The main portal vein is antegrade. The right kidney is 11.0 cm in length. No ascites. IMPRESSION: 1. Hepatic steatosis. This document has been electronically signed by: Blair Moe MD on 05/09/2025 08:34:16
== END 2025-05-09 07:48 | disposition home or self-care (01) ==
LOC: HO.US 07:47
PROVIDERS: PCP Internal Medicine; Visit Provider Internal Medicine
DX: R10.11 Right upper quadrant pain (principal)
CPT/HCPCS: 76705

== ENCOUNTER → 2025-05-09 07:49 | Outpatient (BNV) | payer OTHER, SELFPAY | PROVIDERS: PCP Internal Medicine; Visit Provider Specialist | DX: K76.0 Fatty (change of) liver, not elsewhere classified (principal) | CPT/HCPCS: 76705 ==

== ENCOUNTER 2025-07-11 08:32 | Outpatient (AMB) | payer OTHER, SELFPAY ==
[2025-07-11 08:36] VITALS: BP 120/78; PULSE 68; RESP 17; O2SAT 97; BMI 29.5
--- NOTE | 2025-07-11 08:36 | A.OFFPC_ITS ---
Vital Signs 07/11/25 08:36 Height 5 ft 9 in Weight 200 lb BMI 29.5 BP 120/78 Blood Pressure Location Lt brachial Position Sitting Respiration 17 Pulse 68 Pulse Source Pulse Oximeter Pulse Oximetry (%) 97 Oxygen Delivery Method Room Air Intake Visit Reasons: 3m follow up Intake Note: Pt is here today for 3 months follow up visit. Allergies No Known Allergies Allergy (Verified 07/11/25 08:38) Medication List - Last Reconciled 07/11/25 by Angelina Rowley MD cholecalciferol (vitamin D3) 50 mcg PO DAILY 3 months MDD 50mcg / 2000 units daily magnesium oxide 400 mg PO DAILY omeprazole 20 mg PO DAILY Tobacco use date assessed: 07/11/25 Dental Screening Dental Screen Date: 08/02/24 HPI 3m follow up HPI Details Pt c/o persistent epigastric abd pain burning like sensation, not rela fran to diet, on and off lasting few minutes at a time. Patient denies nausea ,vomiting, hematochezia, melena, change in bowel habits heartburn. abdominal ultrasound was consistent with fatty liver. Patient tried omeprazole with slightly improvement in his symptoms Pt complains of chronic upper abdominal and chest muscle spasms one or twice every 2 weeks lasting up to 3 mins. 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 Patient has been taking meloxicam on and off with good relief. [facility] Medical History (Updated 07/11/25 @ 09:25 by Angelina Rowley MD) RUQ abdominal pain Chronic headache Excessive daytime sleepiness with normal sleep at night Surgical History History of root canal procedure Family History Mother No known problems Father High blood pressure Diabetes Social History Housing: House Alcohol intake: current Alcohol intake frequency: holidays/special occasions only Alcohol type: beer Patient Tobacco Use Status: Never used Tobacco e-Cigarette/Vaping Use: Never Used service: Yes (active duty, [employer] ) Current occupational status: employed Current occupational exposures/hazards: No Cognitive needs: No Hearing needs: No Vision needs: No Questionnaire Thrive Questionnaire Date Thrive assessed: 08/02/24 I am a: Patient What is your living situation today?: I have a steady place to live Within the past 12 months, did the food you bought not last and you didn't have the money to get more?: I choose not to answer this question Within the past 12 months, did you worry whether your food would run out before you got money to buy more?: I choose not to answer this question Do you have trouble paying for medicines?: I choose not to answer this question Do you have trouble getting transportation to medical appointments?: I choose not to answer this question Do you have trouble paying your heating and electricity bill?: I choose not to answer this question Do you have trouble taking care of your child, family member or friend?: I choose not to answer this question Do you have trouble with day-to-day activities such as bathing, preparing meals, shopping, managing finances, etc.?: I choose not to answer this question Are you currently unemployed and looking for a job?: I choose not to answer this question Are you interested in more education?: I choose not to answer this question Please select the resources that you would like help with: None Currently or been in a relationship where the following occur: I choose not to answer THRIVE Score: 0 THAO-7 AMB Questionnaire THAO-7 Date THAO - 7 assessed: 08/02/24 Source: Developed by Drs. Marvin Clark, Alta Ruth, Matt Agustin and colleagues, with an educational yenni from [employer]. Review of Systems Const All systems reviewed & are unremarkable except as noted in HPI and below Eyes Reports no additional complaints ENT Reports no additional complaints Card Reports no additional complaints Resp Reports no additional complaints GI Reports no additional complaints Reports no additional complaints Physical exam (Primary Care) Vital Signs: Last Vital Signs Pulse 68 07/11/25 08:36 Resp 17 07/11/25 08:36 BP 120/78 07/11/25 08:36 Pulse Ox 97 07/11/25 08:36 Oxygen Delivery Method Room Air 07/11/25 08:36 BMI result Body Mass Index 29.5 Tobacco/Smoking Status: Tobacco use Status Tobacco use date assessed 07/11/25 07/11/25 08:40 Patient Tobacco Use Status Never used Tobacco 07/11/25 08:40 e-Cigarette/Vaping Use Never Used 07/11/25 08:40 Thrive Assessment: Date of Thrive Assessment Date Thrive assessed 08/02/24 07/11/25 08:40 Currently or been in a relationship where the following occur: I choose not to answer Const General: no acute distress HENMT Head: Yes normal to inspection Resp Effort & Inspection: normal respiratory effort Auscultation: clear to auscultation bilaterally Cardio Rhythm: regular rhythm Heart sounds: S1 normal heart sound present and S2 normal heart sound present GI Inspection: Yes normal to inspection Palpation (GI): Soft to palpation Percussion: Yes normal to percussion Auscultation: normal bowel sounds Coding Level of Care Code Est Pt Level 4 (08653) Diagnoses Abdominal pain R10.9 Vitamin D deficiency E55.9 Degenerative joint disease (DJD) of lumbar spine M47.816 Assessment & Plan Assessment & Plan (1) Abdominal pain: Comment: Abdominal ultrasound consistent with fatty liver 03/2025, patient has Cologuard kit at home and was advised to completed it 06/2025 Code(s): R10.9 - Unspecified abdominal pain Category: Medical Plan: For persistent epigastric abdominal pain referred to GI to discuss EGD (2) Vitamin D deficiency: Comment: On vitamin D3 supplement Code(s): E55.9 - Vitamin D deficiency, unspecified Category: Medical Plan: Patient was advised to increase vitamin-D supplemental 3000 units daily and repeat level in 2 months (3) Degenerative joint disease (DJD) of lumbar spine: Comment: MR 02/2024 L3-L4 severe left subarticular stenosis, compression of traversing left L5 nerve root, mild central canal stenosis, L4-5 mild central canal stenosis, mild mass effect on traversing L5 nerve root bilaterally Code(s): M47.816 - Spondylosis without myelopathy or radiculopathy, lumbar region Category: Medical Plan: Follow-up with pain management and physical therapy, continue meloxicam PRN Orders: Orders Magnesium 2 Months E55.9 - Vitamin D deficiency, unspecified Vitamin D 25-OH Total 2 Months E55.9 - Vitamin D deficiency, unspecified Vitamin B12 and Folate 2 Months E55.9 - Vitamin D deficiency, unspecified Referrals Gastroenterology Referral R10.9 - Unspecified abdominal pain Medications: Refilled meloxicam 15 mg PO DAILY 30 tabs 2RF
== END 2025-07-11 09:26 | disposition home or self-care (01) ==
LOC: HO.HMCC 08:33
PROVIDERS: PCP Internal Medicine; Visit Provider Internal Medicine
DX: R10.9 Unspecified abdominal pain (principal); E55.9 Vitamin D deficiency, unspecified; M47.816 Spondylosis without myelopathy or radiculopathy, lumbar region

== ENCOUNTER → 2025-07-11 08:32 | Outpatient (BNVA) | payer OTHER, SELFPAY | PROVIDERS: PCP Internal Medicine; Visit Provider Internal Medicine | DX: M47.816 Spondylosis without myelopathy or radiculopathy, lumbar region (principal); R10.9 Unspecified abdominal pain; E55.9 Vitamin D deficiency, unspecified | CPT/HCPCS: 99212 ==

== ENCOUNTER 2025-07-18 09:51 | Outpatient (REF) | payer OTHER, SELFPAY | END 2025-07-18 09:52 | disposition home or self-care (01) | LOC: HO.LAB 09:51 | PROVIDERS: PCP Internal Medicine; Visit Provider Psychiatry & Neurology Neurology | DX: G43.009 Migraine without aura, not intractable, without status migrainosus (principal); H93.13 Tinnitus, bilateral; M51.9 Unspecified thoracic, thoracolumbar and lumbosacral intervertebral disc disorder; G89.29 Other chronic pain; Z13.0 Encounter for screening for diseases of the blood and blood-forming organs and certain disorders involving the immune mechanism | CPT/HCPCS: 36415; 85652; 86812; 99202 ==

== ENCOUNTER 2025-07-18 09:51 | Outpatient (AMB) | payer OTHER, SELFPAY ==
--- NOTE | 2025-07-18 10:20 | A.OFFVIS_ITS ---
Intake Visit Reasons: headache Allergies No Known Allergies Allergy (Verified 07/11/25 08:38) HPI Comments Details: The patient is a 45 year old male presenting with headaches. He has been experiencing headaches two to three times a week for the past year and a half. The pain is bilateral and severe enough to interrupt his activities. Episodes can last from under one hour to two days, and are associated with blurred vision. He has not taken any medication for the headaches, as his primary care physician wanted him to be evaluated by a specialist first. His past medical history is significant for degenerative disc disease, neck pain, depression, and COVID. He also complain of chronic low back pain and ongoing tinnitus. This was a noise that he would here at night in both ear with no obvious trigger. 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 His also experiences headaches, but he is unaware of any other family history of headaches. He has two children. [facility] Medical History (Updated 07/18/25 @ 10:37 by Rut Mccallum MD) RUQ abdominal pain Chronic headache Excessive daytime sleepiness with normal sleep at night Surgical History History of root canal procedure Family History Mother No known problems Father High blood pressure Diabetes Social History Housing: House Alcohol intake: current Alcohol intake frequency: holidays/special occasions only Alcohol type: beer Patient Tobacco Use Status: Never used Tobacco e-Cigarette/Vaping Use: Never Used service: Yes (active duty, [employer] ) Current occupational status: employed Current occupational exposures/hazards: No Cognitive needs: No Hearing needs: No Vision needs: No Review of Systems Narrative Constitutional:? Complain of fatigue and malaise. HEENT:? Complain of blurred vision. Cardiovascular:?No chest pain, palpitations, orthopnea, PND, or leg swelling. Respiratory:?No cough, shortness of breath, wheezing, or hemoptysis. Gastrointestinal:? Complain of abdominal pain. Genitourinary:?No dysuria, frequency, incontinence, or hematuria. Musculoskeletal:? Complain of joint pain, back pain, neck pain, leg cramping and limited movements.. Neurological:?No dizziness, syncope, seizures, numbness, tingling, weakness, tremors, memory loss. Psychiatric:? Complain of depression. Endocrine:?No heat/cold intolerance, polydipsia, polyuria, or hair/skin changes. Hematologic/Lymphatic:?No easy bruising, bleeding, or lymphadenopathy. Integumentary (Skin):? Complain of rash. Allergic/Immunologic:?No seasonal allergies, hives, or recurrent infections. Physical Exam Neuro Other: Mental Status: Alert and oriented to person, place, and time. Normal attention. Normal spontaneous speech, fluency, and comprehension. No obvious issues with mood and memory. Affect is appropriate. Cranial Nerves: CN II: Visual alex full to confrontation, visual acuity intact. CN III, IV, : Pupils equal, round, reactive to light and accommodation. Extraocular movements are normal. CN V: Facial sensation is normal. CN VII: Facial movements symmetrical. CN VIII: Hearing intact to bedside conversation is normal. CN IX, X: Palate elevates symmetrically. CN XI: Shoulder shrug and head turn symmetrical. CN XII: Tongue midline without atrophy or fasciculations. Motor: Bulk and tone normal in all extremities. No significant muscle weakness in arms and legs. No drift. Reflexes: Deep tendon reflexes trace and symmetric. Plantar response down-going bilaterally. Coordination: [id number] is ok Gait and Station: No obvious gait abnormality. No ataxia or instability. Sensory: Intact to light touch, pinprick, and vibration. Romberg is negative. Extrapyramidal: Full facial expressions and blinking. No rigidity. Movements are appropriate with no tremor or abnormality. Speech: Normal; no dysarthria or tremor. Assessment & Plan Assessment & Plan (1) Migraine without aura: Comment: Home PSG at [facility] in September 2024: TST RDI <1. Code(s): G43.009 - Migraine without aura, not intractable, without status migrainosus Category: Medical Qualifiers: Status migrainosus presence: without status migrainosus Intractability: not intractable Qualified Code(s): G43.009 - Migraine without aura, not intractable, without status migrainosus (2) Lumbar disc disease: Comment: MRI LS spine at [facility] in Sep 2024: Mod to severe L 4/5 disease, spondolytic Code(s): M51.9 - Unspecified thoracic, thoracolumbar and lumbosacral intervertebral disc disorder Category: Medical (3) Tinnitus: Code(s): H93.19 - Tinnitus, unspecified ear Category: Medical Qualifiers: Laterality: bilateral Qualified Code(s): H93.13 - Tinnitus, bilateral Plan Impression: a: Chronic migraine without aura b: Chronic tinnitus in both ear of unknown etiology Recommendations: 1. Reassurance and education 2. Sed rate 3. Topiramate 25 mg 1 at night for headache control 4. Sumatriptan 50 mg 1 a day as needed 5. MRI brain WO I educated the patient that his headaches are classified as migraine without aura, noting that this condition is genetic and can be passed on from parents to children. I discussed the management plan, which involves two medications: one to be taken daily at night to control the headaches, and a second one to be taken only as needed for severe headaches. I confirmed the prescriptions for Topiramate and Sumatriptan will be sent to his preferred [facility] pharmacy. Put tinnitus and headaches, I have requested an MRI of brain without contrast to rule out any indication of high intracranial pressure. As far as lumbar disc disease is concerned, sed rate and HLA B27 titers were requested. Orders: Orders MR head/brain wo con Today G43.009 - Migraine without aura, not intractable, without status migrainosus, H93.13 - Tinnitus, bilateral Erythrocyte Sedimentation Rate Today G89.29 - Other chronic pain, R51.9 - Headache, unspecified HLA B27 Today M51.9 - Unspecified thoracic, thoracolumbar and lumbosacral intervertebral disc disorder Medications: New sumatriptan succinate 50 mg orally one a day as needed; 9 tabs 5RF topiramate 25 mg orally one at night; 90 tabs 1RF Coding Level of Care Code New Pt Level 4 (92727) Diagnoses Migraine without aura and without status migrainosus, not intractable G43.009 Status migrainosus presence: without status migrainosus Intractability: not intractable Lumbar disc disease M51.9 Tinnitus of both ears H93.13 Laterality: bilateral
== END 2025-07-18 10:40 | disposition home or self-care (01) ==
LOC: HO.HSM 09:52
PROVIDERS: PCP Internal Medicine; Visit Provider Psychiatry & Neurology Neurology
DX: G43.009 Migraine without aura, not intractable, without status migrainosus (principal); M51.9 Unspecified thoracic, thoracolumbar and lumbosacral intervertebral disc disorder; H93.13 Tinnitus, bilateral
CPT/HCPCS: 99204